=== PATIENT | male | born 1960 | race Caucasian/White ===

== ENCOUNTER 2020-01-12 19:01 | Inpatient (IN) | payer MEDICARE ==
[~2020-01-12] VITALS: Ht 175.3 cm; Wt 88.9 kg
[2020-01-12 19:45] LABS: BASOPHILS # (AUTO) 0.1 (0.0-0.1); BASOPHILS % 0.7 % (0.0-1.0); EOSINOPHILS # (AUTO) 0.2 (0.0-0.4); EOSINOPHILS % 1.7 % (0.0-6.0); HEMATOCRIT 43.6 % (38.2-49.6); HEMOGLOBIN 14.6 g/dL (14.0-18.0); LYMPHOCYTES # (AUTO) 1.1 (1.0-3.2); LYMPHOCYTES % 11.7 % (18.0-39.1); MEAN CORPUSCULAR HEMOGLOBIN 31.1 pg (28-32); MEAN CORPUSCULAR HGB CONC 33.5 g/dL (31-35); MEAN CORPUSCULAR VOLUME 92.8 fL (81-99); MONOCYTES # (AUTO) 0.7 (0.2-0.8); MONOCYTES % 7.3 % (4.4-11.3); NEUTROPHILS # (AUTO) 7.6 (2.1-6.9); NEUTROPHILS % 78.3 % (38.7-80.0); PLATELET COUNT 178 x10e3/uL (140-360); RED CELL DISTRIBUTION WIDTH 13.5 % (11.7-14.4)
[2020-01-12 20:06] LABS: ALBUMIN/GLOBULIN RATIO 1.2 (0.8-2.0); ANION GAP 19.5 mmol/L (8-16); CALCIUM 9.7 mg/dL (8.4-10.2); CREATININE, SERUM 1.37 mg/dL (0.72-1.25); POTASSIUM 4.5 mmol/L (3.5-5.1)
[2020-01-12 20:13] LABS: CREATINE KINASE MB 3.5 ng/mL (0-5.0)
[2020-01-12] MEDS ORDERED: NITROGLYCERIN 2% OINT 1 GM PKT TOP ONE (20:15)
--- NOTE | 2020-01-12 20:20 | NUR ---
PT REFUSED SL NITRO; DR. BOOTHE INFORMED
--- NOTE | 2020-01-12 20:24 | Diagnostic Imaging Report ---
EXAMINATION: CHEST SINGLE (PORTABLE) INDICATION: ^Y ^cp ^[id number] ^1947 COMPARISON: None FINDINGS: TUBES and LINES: Cardiac device at the left superior chest wall with leads overlying the cardiac silhouette. LUNGS: Hazy left perihilar and retrocardiac opacity. Linear opacity in the right lung base, favored to represent scarring or atelectasis. PLEURA: Small left pleural effusion. No pneumothorax. HEART AND MEDIASTINUM: Enlarged cardiac silhouette. Vascular stents visualized. Post surgical changes of the mediastinum with multiple surgical clips. BONES AND SOFT TISSUES: No acute osseous lesion. Visualized median sternotomy wires. Soft tissues are unremarkable. UPPER ABDOMEN: No free air under the diaphragm. IMPRESSION: 1. Hazy left perihilar and retrocardiac opacities, may represent pneumonia or less likely edema. 2. Enlarged cardiac silhouette and small left pleural effusion. Signed by: Dr. Nirav Chung M.D. on 01/12/2020 8:21 PM
[2020-01-12] MEDS ORDERED: NITROGLYCERIN 0.4 MG SUBL ONE (20:25)
--- NOTE | 2020-01-12 20:47 | NUR ---
TROPONIN ELEVATED; DR. BOOTHE INFORMED. PT TO BE TRANSFERED
--- NOTE | 2020-01-12 20:56 | Emergency Department Note ---
History of Present Illnes History of Present Illness Chief Complaint: Chest Pain History of Present Illness This is a 59 year old male arrives to the ED with chest pain for 4 days associated with shortness of breath. Patient states to history of heart attack in the past and this feels the same.. Chief Complaint Comment 59 Y/O MALE PT AAOX3 PRESENTS TO ED WITH MID STERNAL / EPIGASTRIC CHEST PAIN X4 DAYS; RESP RATE AND EFFORT ARE WNL, O2 SAT RA 100%; SKIN WARM, DRY, PALE IN COLOR; 18 GAUGE IV CATH PLACED TO PTS RIGHT FA, BLOOD OBTAINED FOR LAB ANALYSIS; EMS ADMINISTERED NITRO SPRAY X1 EN ROUTE; EKG PERFORMED AND GIVEN TO ER MD FOR REVIEW; ER MD TO TRIAGE FOR INITIAL EVAL Onset (how long ago): day(s) Radiation: Reports non-radiation Severity: mild Onset quality: gradual Duration (how long): day(s) Progression: worsening Chronicity: recurrent Past Medical/Family History Physician Review I have reviewed the patient's past medical and family history. Any updates have been documented here. Past Medical History Recent Fever: No Clinical Suspicion of Infectio: No New/Unexplained Change in Ment: No Past Medical History: Hypertension, Diabetes, CHF, A-Fib, Hyperlipedemia Other Medical History: V-FIB NEUROPATHY CHRONIC PAIN TO RIGHT SHOULDER Past Surgical History: CABG, Pacer/AICD Other Surgery: ANKLE SX Social History Smoking Cessation: Never Smoker Counseling Performed: No Alcohol Use: None Any Illegal Drug Use: No Other Any Pre-Existing Lines (PICC,: No Review of Systems Review of Systems Constitutional: Reports no symptoms EENTM: Reports no symptoms Cardiovascular: Reports as per HPI, Reports chest pain Respiratory: Reports no symptoms Gastrointestinal: Reports no symptoms Genitourinary: Reports no symptoms Musculoskeletal: Reports no symptoms Integumentary: Reports no symptoms Neurological: Reports no symptoms Psychological: Reports no symptoms Endocrine: Reports no symptoms Hematological/Lymphatic: Reports no symptoms Physical Exam Related Data Allergies: Coded Allergies: ibuprofen (Verified Allergy, Intermediate, 01/12/20) Triage Vital Signs Vital Signs Date Time Temp Pulse Resp B/P (MAP) Pulse Ox O2 Delivery O2 Flow Rate FiO2 01/12/20 19:15 97.5 89 17 107/64 100 Room Air Vital signs reviewed: Yes Physical Exam CONSTITUTIONAL Constitutional: Present well-developed, Present well-nourished, Present ill appearing HENT HENT: Present normocephalic, Present atraumatic, Present oropharynx clear/moist, Present nose normal HENT L/R: Present left ext ear normal, Present right ext ear normal EYES Eyes: Reports PERRL, Reports conjunctivae normal NECK Neck: Present ROM normal PULMONARY Pulmonary: Present effort normal, Present breath sounds normal CARDIOVASCULAR Cardiovascular: Present regular rhythm, Present heart sounds normal, Present capillary refill normal, Present normal rate GASTROINTESTINAL Abdominal: Present soft, Present nontender, Present bowel sounds normal GENITOURINARY Genitourinary: Present exam deferred SKIN Skin: Present warm, Present dry MUSCULOSKELETAL Musculoskeletal: Present ROM normal NEUROLOGICAL Neurological: Present alert, Present oriented x 3, Present no gross motor or sensory deficits PSYCHOLOGICAL Psychological: Present mood/affect normal, Present judgement normal Results Laboratory Result Diagram: 01/12/20192901/12/201929 Laboratory Laboratory Tests Test 01/12/20 19:30 White Blood Count 9.74 x10e3/uL (4.8-10.8) Red Blood Count 4.70 x10e6/uL (4.3-5.7) Hemoglobin 14.6 g/dL (14.0-18.0) Hematocrit 43.6 % (38.2-49.6) Mean Corpuscular Volume 92.8 fL (81-99) Mean Corpuscular Hemoglobin 31.1 pg (28-32) Mean Corpuscular Hemoglobin Concent 33.5 g/dL (31-35) Red Cell Distribution Width 13.5 % (11.7-14.4) Platelet Count 178 x10e3/uL (140-360) Neutrophils (%) (Auto) 78.3 % (38.7-80.0) Lymphocytes (%) (Auto) 11.7 % (18.0-39.1) Monocytes (%) (Auto) 7.3 % (4.4-11.3) Eosinophils (%) (Auto) 1.7 % (0.0-6.0) Basophils (%) (Auto) 0.7 % (0.0-1.0) Neutrophils # (Auto) 7.6 (2.1-6.9) Lymphocytes # (Auto) 1.1 (1.0-3.2) Monocytes # (Auto) 0.7 (0.2-0.8) Eosinophils # (Auto) 0.2 (0.0-0.4) Basophils # (Auto) 0.1 (0.0-0.1) Absolute Immature Granulocyte (auto 0.03 x10e3/uL (0-0.1) D-Dimer Quantitative (PE/DVT) 1.39 ug/mLFEU (0.00-0.45) Sodium Level 133 mmol/L (136-145) Potassium Level 4.5 mmol/L (3.5-5.1) Chloride Level 96 mmol/L (98-107) Carbon Dioxide Level 22 mmol/L (22-29) Anion Gap 19.5 mmol/L (8-16) Blood Urea Nitrogen 18 mg/dL (7-26) Creatinine 1.37 mg/dL (0.72-1.25) Estimat Glomerular Filtration Rate 54 ML/MIN (60-) BUN/Creatinine Ratio 13 (6-25) Glucose Level 377 mg/dL (74-118) Calcium Level 9.7 mg/dL (8.4-10.2) Total Bilirubin 2.1 mg/dL (0.2-1.2) Aspartate Amino Transf (AST/SGOT) 17 IU/L (5-34) Alanine Aminotransferase (ALT/SGPT) 14 IU/L (0-55) Alkaline Phosphatase 93 IU/L (40-150) Creatine Kinase 94 IU/L (30-200) Creatine Kinase MB 3.50 ng/mL (0-5.0) Troponin I 0.379 ng/mL (0-0.300) Total Protein 7.4 g/dL (6.5-8.1) Albumin 4.0 g/dL (3.5-5.0) Globulin 3.4 g/dL (2.3-3.5) Albumin/Globulin Ratio 1.2 (0.8-2.0) Lab results reviewed: Yes Procedures 12 Lead ECG Interpretation ECG Interpretation : ECG: ECG 2 [employer]ist: Interpreted by ED physician Prior ECG tracings: reviewed Rhythm: sinus tachycardia QRS axis: normal Conduction: LAFB ST segments normal: Yes T waves normal: Yes Clinical Impression: abnormal ECG Critical Care Time Total Critical Care Time (min): 65 Critical care time exclusive o: separately billable procedures Critcal care necessary due to: cardiac failure Assessment & Plan Medical Decision Making MDM 59-year-old male arrives to the ED with complaints of chest pain, high risk factors. Patient noted to have a weakened troponin was concerns of an STEMI. Dr. Valdez of cardiology contacted, recommended initiation of heparin drip. Patient likely has a component of decompensated heart failure as well. Assessment & Plan Final Impression: (1) NSTEMI (non-ST elevated myocardial infarction) (2) Chest pain Depart Disposition: ADMITTED Last Vital Signs Date Time Temp Pulse Resp B/P (MAP) Pulse Ox O2 Delivery O2 Flow Rate FiO2 01/12/20 20:21 106 18 120/88 93 Room Air 01/12/20 19:15 97.5 Medications in the ED Nitroglycerin 0.4 mg STK-MED ONCE .ROUTE ; Start 01/12/20 at 20:25; Stop 01/12/20 at 20:18; Status DC Nitroglycerin 1 gm ONCE ONCE TOP ; Start 01/12/20 at 20:15; Stop 01/12/20 at 20:28; Status DC PRAVEEN BOOTHE DO Jan 12, 2020 20:56
[2020-01-12] MEDS ORDERED: ONDANSETRON HCL INJ 2MG/ML 2ML 2 MG/ML VIAL IV STA (20:57)
[2020-01-12] MEDS ORDERED: MORPHINE SULFATE INJ 4 MG/ML INJ 1ML IV STA (20:58)
--- NOTE | 2020-01-12 21:07 | NUR ---
medicated with 4 morphine/4 zofran; rates chest pain 7/10. on the phone talking with his sister
[2020-01-12] MEDS ORDERED: ONDANSETRON HCL INJ 2MG/ML 2ML 2 MG/ML VIAL ONE (21:08)
[2020-01-12] MEDS ORDERED: MORPHINE SULFATE INJ 4 MG/ML INJ 1ML ONE (21:08)
[2020-01-12] MEDS ORDERED: HEPARIN SOD (PORCINE) 5,000 UNIT/ML VIAL IV ONE (21:15)
--- NOTE | 2020-01-12 21:24 | NUR ---
placed on 2 l of 02; sats up to 96%
--- OUTSIDE RECORDS SUMMARY | 2020-01-12 21:36 | XMS REPORT | Continuity of Care Document ---
Author Author [facility] t Organization [facility] Address [address] [place] [address] Phone Unavailable Care Team Providers Care Records And Tape Recordings Engineer Name Role Phone Kimberly BOOTHE Attkelly Unavailable Problems This patient has no known problems. Allergies, Adverse Reactions, Alerts This patient has no known allergies or adverse reactions. Medications This patient has no known medications. Procedures This patient has no known procedures. Results Test Description Test Time Test Comments Results Result Comments Source CHEST SINGLE (PORTABLE) 2020-01-12 20:17:00 [facility] 1960 Sex: M [facility] [address] [address] Patient Name: LIDA MICHELLE MR #: [id number] : 1960 Age/Sex: 59/M Req #: [id number] Adm Physician: Ordered by: PRAVEEN BOOTHE DO Report #: [id number] Location: ER Room/Bed: Procedure: [id number] DX/CHEST SINGLE (PORTABLE) Exam Date: 01/12/20 Exam Time: 1947 REPORT STATUS: Signed EXAMINATION: CHEST SINGLE (PORTABLE) INDICATION: Y cp [id number] COMPARISON: None FINDINGS: TUBES and LINES: Cardiac device at the left superior chest wall with leads overlying the cardiac silhouette. LUNGS: Hazy left perihilar and retrocardiac opacity. Linear opacity in the right lung base, favored to represent scarring or atelectasis. PLEURA: Small left pleural effusion. No pneumothorax. HEART AND MEDIASTINUM: Enlarged cardiac silhouette. Vascular stents visualized. Post surgical changes of the mediastinum with multiple surgical clips. BONES AND SOFT TISSUES: No acute osseous lesion. Visualized median sternotomy wires. Soft tissues are unremarkable. UPPER ABDOMEN: No free air under the diaphragm. IMPRESSION: 1. Hazy left perihilar and retrocardiac opacities, may represent pneumonia or less likely edema. 2. Enlarged cardiac silhouette and small left pleural effusion. Signed by: Dr. Naomi Chung M.D. on 01/12/2020 8:21 PM Dictated By: NAOMI CHUNG MD 20 Transcribed By: NONA on 01/12/202020 COPY TO: PRAVEEN BOOTHE DO
[2020-01-12] MEDS ORDERED: HEPARIN 25,000 UNIT DRIP IV ONE (21:44)
[2020-01-12] MEDS: HEPARIN 25,000 UNIT 1,000 UNIT in DEXTROSE 5% 250ML 250 ML IV SCH (21:53)
--- NOTE | 2020-01-12 21:53 | NUR ---
HEPARIN DRIP STARTED AT 950 UNITS/HR
[2020-01-12 22:04] LABS: INR 0.89; PROTHROMBIN TIME 12.5 seconds (11.9-14.5)
[2020-01-12 22:05] LABS: PARTIAL THROMBOPLASTIN TIME 30.3 seconds (23.8-35.5)
[2020-01-12 23:00] VITALS: BP_SYST 124; BP_SYST 126; BP_DIAS 88
--- NOTE | 2020-01-12 23:00 | NUR ---
Patient transferred from ER to ICU bed 194. Patient is here for chest pain, NSTEMI on a heparin drip infusing at 9.5ml/hr. pt is aaox3, still complaining of mid-sternal chest pain, non-radiating. Patient on 2L nc SpO2 94%. Patient is paced rhythm. Vitals stable. ER staffs notified Dr. Valdez for consult.
[2020-01-12] MEDS ORDERED: MORPHINE SULFATE 2 MG/ML SYR 1ML IV STA (23:40)
[2020-01-13] VITALS (7 sets, daily range): BP systolic 92–121; BP diastolic 58–77
[2020-01-13] MEDS ORDERED: ASPIRIN81 MG (01:58)
[2020-01-13] MEDS ORDERED: NITROGLYCERIN0.4 MG SL (01:58)
[2020-01-13] MEDS ORDERED: DIGOXIN125 MCG PO (01:58)
[2020-01-13] MEDS ORDERED: PLAVIX75 MG PO (01:58)
[2020-01-13] MEDS ORDERED: LANTUS 3ML100 UNITS/ (01:58)
[2020-01-13] MEDS ORDERED: FUROSEMIDE40 MG PO (01:58)
[2020-01-13] MEDS ORDERED: LIPITOR20 MG PO (01:58)
[2020-01-13] MEDS ORDERED: MIDODRINE HCL5 MG PO (01:58)
[2020-01-13] MEDS ORDERED: LEXAPRO20 MG PO (01:58)
[2020-01-13] MEDS ORDERED: NOVOLOG100 UNIT/1 SC (01:58)
[2020-01-13] MEDS ORDERED: RANEXA500 MG PO (01:58)
[2020-01-13 04:17] LABS: BASOPHILS # (AUTO) 0.1 (0.0-0.1); BASOPHILS % 0.8 % (0.0-1.0); EOSINOPHILS # (AUTO) 0.2 (0.0-0.4); EOSINOPHILS % 2.2 % (0.0-6.0); HEMATOCRIT 42.5 % (38.2-49.6); HEMOGLOBIN 14.4 g/dL (14.0-18.0); LYMPHOCYTES # (AUTO) 2.9 (1.0-3.2); LYMPHOCYTES % 28.1 % (18.0-39.1); MEAN CORPUSCULAR HEMOGLOBIN 31.3 pg (28-32); MEAN CORPUSCULAR HGB CONC 33.9 g/dL (31-35); MEAN CORPUSCULAR VOLUME 92.4 fL (81-99); MONOCYTES # (AUTO) 0.8 (0.2-0.8); MONOCYTES % 7.9 % (4.4-11.3); NEUTROPHILS # (AUTO) 6.3 (2.1-6.9); NEUTROPHILS % 60.7 % (38.7-80.0); PLATELET COUNT 170 x10e3/uL (140-360); RED CELL DISTRIBUTION WIDTH 13.6 % (11.7-14.4)
[2020-01-13 04:37] LABS: ALBUMIN 3.7 g/dL (3.5-5.0); ALBUMIN/GLOBULIN RATIO 1.2 (0.8-2.0); ANION GAP 14.8 mmol/L (8-16); CHOL/HDL RATIO 5.1 (3.9-4.7); CREATININE, SERUM 1.25 mg/dL (0.72-1.25); POTASSIUM 3.8 mmol/L (3.5-5.1)
[2020-01-13 04:56] LABS: CREATINE KINASE MB 5.1 ng/mL (0-5.0)
[2020-01-13] MEDS ORDERED: MORPHINE SULFATE 2 MG/ML SYR 1ML IV ONE (08:30)
[2020-01-13] MEDS ORDERED: ASPIRIN 325 MG TAB PO SCH (10:15)
[2020-01-13] MEDS: FUROSEMIDE 40 MG TAB PO SCH (10:29)
[2020-01-13] MEDS ORDERED: ASPIRIN 81 MG CHEW TAB PO ONE (10:30)
[2020-01-13] MEDS: ATORVASTATIN 40 MG TAB PO SCH (10:34)
[2020-01-13] MEDS: DIGOXIN 0.125 MG TAB PO SCH (10:35)
[2020-01-13] MEDS: RANOLAZINE 500 MG TABSR PO SCH ×2 (10:43→18:00)
[2020-01-13] MEDS: CARVEDILOL 3.125 MG TAB PO SCH ×2 (10:44→18:00)
--- NOTE | 2020-01-13 14:09 | Consultation ---
DATE OF CONSULTATION: Cardiology Consultation Dictated by REASON FOR CONSULTATION: Chest pain. HISTORY OF PRESENT ILLNESS: Mr. Rios is a 59-year-old male with past medical history of coronary artery disease, status post coronary artery bypass grafting 2010, multiple heart attacks, diabetes mellitus type 2, and also TIA, who reports that he came into the ER after 3 to 4 days history of chest pains that were getting worse on exertion and also some shortness of breath. His symptoms were relieved by nitroglycerin, but he thought that he was taking too many nitros and for that reason he sought urgent care. He continues to have some chest pains, however, none at the moment since receiving morphine. He denies palpitations, dizziness, and does endorse history of syncope upon standing. Denies fever, chills, cough, abdominal pain, or dysuria. He does also report that he has a history of heart failure that he has known about for the last two years, however, he has not been under the care of sill worker due to moving to [place]. He previously was under the care of Dr. Franco with . REVIEW OF SYSTEMS: Negative except as mentioned above. PAST SURGICAL HISTORY: Coronary artery bypass grafting 2010 and also ankle surgery. PAST MEDICAL HISTORY: Diabetes type 2 on insulin, multiple myocardial infarctions, coronary artery disease, TIAs, hypertension, and congestive heart failure. SOCIAL HISTORY: He is disabled, lives alone. Denies smoking or alcohol intake or illicit drug use. PHYSICAL EXAMINATION: VITAL SIGNS: Temperature 98.1, pulse 94, respiratory rate 15, blood pressure 121/70, oxygen saturation 96% on 2 L nasal cannula. GENERAL: Alert and oriented x3, resting comfortably in bed, in no acute distress. NECK: Supple. no JVD noted. No carotid bruits. LUNGS: Clear to auscultation in the upper lobes, lower lobes diminished. No crackles, no wheezing or rhonchi noted. CARDIOVASCULAR: Regular rate and rhythm. Systolic murmur present. S4 noted. ABDOMEN: Soft, nontender. EXTREMITIES: lower extremity no edema. 1+ pedal pulses. CARDIOVASCULAR MEDICATIONS: Heparin IV titrate. LABORATORY DATA: WBC 10.30, hemoglobin 14.4, hematocrit 42.5, platelets 170,000. Sodium 135, potassium 3.8, BUN 18, creatinine 1.25, glucose 250, calcium 9.0, AST 15, ALT 12, alkaline phosphatase 85, creatine kinase 99, CK-MB 5.10, troponin 0.587, triglycerides 160, total cholesterol 154, LDL 92, HDL 30. IMAGING: Chest x-ray with hazy left perihilar and retrocardiac opacity, which may represent pneumonia or edema. IMPRESSION: 1. NSTEMI. 2. Coronary artery disease, status post coronary artery bypass graft and multiple heart attacks with PCI in the past. 3. Diabetes mellitus type 2. 4. History of TIA. 5. Congestive heart failure. RECOMMENDATIONS: Continue with IV heparin, other medications will be added for management of the above. Continue to monitor on telemetry at all time. Continue to monitor cardiac enzymes. Plan for coronary angiogram on Wednesday. We will continue to monitor this patient very closely. Thank you for this consultation and allowing us to participate in this patient's care. MD CAROL Taveras/GALEN /[id number]
[2020-01-13] MEDS ORDERED: NITROGLYCERIN 2% OINT 1 GM PKT TOP ONE (16:45)
[2020-01-13] MEDS: MORPHINE SULFATE INJ 4 MG/ML INJ 1ML IV PRN ×2 (16:57→21:24)
--- NOTE | 2020-01-13 18:16 | NUR ---
Patient complained of chest pain 09/05 in morning, Dr. Valdez called, no response. Dr. Hdz's office called and Rod ROSAS gave orders for morphine one time dose. Cardiology LUNCHROOM SUPERVISOR Nellie rounded and informed of chest pain and patient's history of falls with syncope. Patient complained of chest pain again in shift, Dr. Valdez called and gave orders for nitrobid ointment and morphine prn for pain. Patient refused nitro ointment. Will continue to monitor patient. Addendum: 01/13/20 at 1826 by Oralia Hsu RN Dr. Valdez made aware of troponin trending upwards.
[2020-01-13 18:22] LABS: CREATINE KINASE MB 8.5 ng/mL (0-5.0)
--- NOTE | 2020-01-13 18:40 | NUR ---
Dr. Valdez paged to inform of cardiac enzymes. No answer.
--- NOTE | 2020-01-13 19:09 | NUR ---
Dr. Valdez informed of increasing troponin. No new orders.
[2020-01-13] MEDS ORDERED: ATORVASTATIN 20 MG TAB PO SCH (21:00)
--- NOTE | 2020-01-13 21:00 | NUR ---
Patient transferred to IMCU bed 199. RN report given to Karen
[2020-01-13] MEDS: HEPARIN 25,000 UNIT 1,000 UNIT in DEXTROSE 5% 250ML 250 ML IV SCH (21:15)
[2020-01-13] MEDS ORDERED: DEXTROSE 50% SYRINGE 50 ML IV PRN (21:30)
[2020-01-13] MEDS: PANTOPRAZOLE SOD 40 MG TABEC PO SCH (23:10)
[2020-01-14] VITALS (8 sets, daily range): BP systolic 99–120; BP diastolic 53–69
[2020-01-14] MEDS: MORPHINE SULFATE INJ 4 MG/ML INJ 1ML IV PRN ×3 (01:16→11:16)
[2020-01-14 05:30] LABS: BASOPHILS # (AUTO) 0.1 (0.0-0.1); BASOPHILS % 0.8 % (0.0-1.0); EOSINOPHILS # (AUTO) 0.5 (0.0-0.4); EOSINOPHILS % 4.6 % (0.0-6.0); HEMATOCRIT 39.3 % (38.2-49.6); LYMPHOCYTES # (AUTO) 2.5 (1.0-3.2); LYMPHOCYTES % 22.3 % (18.0-39.1); MEAN CORPUSCULAR HEMOGLOBIN 31.1 pg (28-32); MEAN CORPUSCULAR HGB CONC 33.1 g/dL (31-35); MONOCYTES # (AUTO) 1.1 (0.2-0.8); MONOCYTES % 10.4 % (4.4-11.3); NEUTROPHILS # (AUTO) 6.8 (2.1-6.9); NEUTROPHILS % 61.5 % (38.7-80.0); PLATELET COUNT 156 x10e3/uL (140-360); RED BLOOD COUNT 4.18 x10e6/uL (4.3-5.7); RED CELL DISTRIBUTION WIDTH 13.4 % (11.7-14.4)
[2020-01-14 05:49] LABS: ANION GAP 15.9 mmol/L (8-16); BLOOD UREA NITROGEN 22 mg/dL (7-26); BUN/CREATININE RATIO 18 (6-25); CARBON DIOXIDE 24 mmol/L (22-29); CHLORIDE 99 mmol/L (98-107); CREATININE, SERUM 1.22 mg/dL (0.72-1.25); EST GLOMERULAR FILTRATION RATE > 60 ML/MIN (60-); GLUCOSE 211 mg/dL (74-118); POTASSIUM 3.9 mmol/L (3.5-5.1); SODIUM 135 mmol/L (136-145)
[2020-01-14 06:16] LABS: THYROID STIMULATING HORMONE 0.846 uIU/mL (0.350-4.940)
[2020-01-14] MEDS: PANTOPRAZOLE SOD 40 MG TABEC PO SCH (08:11)
[2020-01-14] MEDS: CARVEDILOL 3.125 MG TAB PO SCH ×2 (08:12→18:13)
[2020-01-14] MEDS: RANOLAZINE 500 MG TABSR PO SCH ×2 (08:12→18:14)
[2020-01-14] MEDS: DIGOXIN 0.125 MG TAB PO SCH (08:12)
[2020-01-14] MEDS: FUROSEMIDE 40 MG TAB PO SCH (08:12)
[2020-01-14] MEDS: INSULIN REGULAR, HUMAN 100 UNIT/1 ML 3ML VIAL SQ SCH ×4 (08:13→21:00)
--- NOTE | 2020-01-14 12:57 | Progress Note ---
DATE: Cardiology Progress Note SUBJECTIVE: The patient continues to have some chest pain at rest. Not in pain at the moment. Endorses some shortness of breath. Denies any PND, orthopnea. OBJECTIVE: VITAL SIGNS: Temperature 98.2, pulse 98, respiratory rate 22, blood pressure 120/61, and oxygen saturation 99% on 2 L nasal cannula. GENERAL: Alert and oriented x3, resting comfortably in bed, in no acute distress. NECK: Supple. No JVD noted. LUNGS: Clear to auscultation in the upper lobes, lower lobes diminished. No crackles. No rhonchi. CARDIOVASCULAR: Regular rate and rhythm. Systolic murmur present. S4 noted. AICD on the left side. ABDOMEN: Soft, nontender. EXTREMITIES: Lower extremity, no edema. 2+ pedal pulses. CARDIOVASCULAR MEDICATIONS: 1. Digoxin 0.125 mg p.o. daily. 2. Lasix 40 mg p.o. daily. 3. Coreg 3.125 mg p.o. b.i.d. 4. mg p.o. b.i.d. 5. Atorvastatin 40 mg p.o. at bedtime. 6. Heparin IV drip. 7. Entresto one tablet p.o. b.i.d. LABORATORY DATA: WBCs 10.98, hemoglobin 13.0, hematocrit 39.3, and platelets 156. Sodium 135, potassium 3.9, BUN 22, and creatinine 1.22. Hemoglobin A1c 12.1. TSH 0.846. IMPRESSION: 1. Ddp-EJ-ufzjvljft myocardial infarction. 2. Coronary artery disease, status post coronary artery bypass grafting and multiple heart attacks with PCIs in the past. 3. Diabetes mellitus type 2, uncontrolled. 4. History of transient ischemic attack. 5. Congestive heart failure. 6. Systolic heart failure with an ejection fraction of 20% per recent echo. RECOMMENDATIONS: Continue the above-listed cardiac medications. Continue IV heparin. Plan for coronary angiogram likely tomorrow. Medications adjusted for management of above. Decompensated heart failure. We will need [facility] AICD interrogated during this hospital stay. Plans have been made. Monitor closely. Dictated by Nellie Kline NP MD MARY ELLEN Taveras/GALEN /[id number]
[2020-01-14] MEDS: NITROGLYCERIN 2% OINT 1 GM PKT TOP SCH (18:14)
[2020-01-14] MEDS: VALSARTAN/SACUBITRIL 24MG/26MG 1 EA TAB PO SCH (18:14)
[2020-01-14] MEDS: ESCITALOPRAM OXALATE 10 MG TAB PO SCH (18:14)
[2020-01-14] MEDS ORDERED: ONDANSETRON HCL INJ 2MG/ML 2ML 2 MG/ML VIAL IV PRN (18:30)
[2020-01-14] MEDS: INSULIN GLARGINE 100 UNITS/ML VIAL SQ SCH (21:00)
[2020-01-14] MEDS: HEPARIN 25,000 UNIT 1,000 UNIT in DEXTROSE 5% 250ML 250 ML IV SCH (21:15)
[2020-01-14] MEDS: ATORVASTATIN 40 MG TAB PO SCH (22:00)
[2020-01-15] VITALS (26 sets, daily range): BP systolic 65–138; BP diastolic 41–85
--- NOTE | 2020-01-15 | NUR ---
Dr. Valdez informed of hypotension, pt c/o dizziness and "not feeling well". Order received for 500cc NS x 1 over 5 hours.
[2020-01-15] MEDS ORDERED: SODIUM CHLORIDE 0.9% 1000ML 1,000 ML ONE ×2 (00:13→11:24)
[2020-01-15] MEDS ORDERED: SODIUM CHLORIDE 0.9% 1000ML 500 ML IV ONE (00:15)
[2020-01-15] MEDS ORDERED: HEPARIN 25,000 UNIT DRIP IV ONE (00:54)
[2020-01-15] MEDS: ONDANSETRON HCL INJ 2MG/ML 2ML 2 MG/ML VIAL IV PRN ×2 (01:00→16:40)
--- NOTE | 2020-01-15 02:20 | NUR ---
Dr. Valdez updated on current VS/hypotension despite IVF. New orders received to transfer to ICU and start levophed gtt. Per MD, OK to infuse through PIV until central line can be placed. Left voicemail for Dr. Way at 0258 regarding new consult and need for central line placement. test car driver updated on need to transfer patient to ICU. Patient updated on POC and verbalizes understanding.
[2020-01-15] MEDS: NOREPINEPHRINE INJ 4MG/4ML 8 MG in DEXTROSE 5% 250ML 250 ML IV SCH (02:45)
[2020-01-15] MEDS ORDERED: NOREPINEPHRINE 8 MG/D5W 250 ML 250 ML ONE (02:47)
--- NOTE | 2020-01-15 03:45 | NUR ---
Spoke with Dr. Way regarding new consult, patient condition and VS. New orders received. Consent obtained for central line placement, patient agreeable with POC. Dr. Way to see patient to place central line.
[2020-01-15] MEDS ORDERED: LIDOCAINE HCL 2% LOCAL 20 ML VIAL ONE ×2 (05:39→11:19)
[2020-01-15] MEDS: NITROGLYCERIN 2% OINT 1 GM PKT TOP SCH ×4 (06:00→15:31)
--- NOTE | 2020-01-15 06:45 | NUR ---
CRITICAL CARE [id number] consult 201950 procedure note brief procedure note. Right IJ was mostly collapsed (suggested very dry) and mostly invisible except within a few frames, 2 attempts here prior to being aborted. Noting difficult w indow the right subclavian was simultaneously prepped, difficult access, brief attempts x 3 as the lidocaine anesthetic supply ran out and patient with trouble lying still. Therefore patient was reprepped with a new kit, and the femoral access was done. 3 lumen CVC inserted into right femoral vein, no difficulties, 1 attempt. EBL:4 cc, complication none CXR pending
[2020-01-15 06:49] LABS: BASOPHILS # (AUTO) 0.1 (0.0-0.1); BASOPHILS % 0.7 % (0.0-1.0); EOSINOPHILS # (AUTO) 0.1 (0.0-0.4); EOSINOPHILS % 1.5 % (0.0-6.0); HEMATOCRIT 37.7 % (38.2-49.6); HEMOGLOBIN 12.7 g/dL (14.0-18.0); LYMPHOCYTES # (AUTO) 1.1 (1.0-3.2); LYMPHOCYTES % 11.8 % (18.0-39.1); MEAN CORPUSCULAR HEMOGLOBIN 31.4 pg (28-32); MEAN CORPUSCULAR HGB CONC 33.7 g/dL (31-35); MEAN CORPUSCULAR VOLUME 93.1 fL (81-99); MONOCYTES # (AUTO) 0.5 (0.2-0.8); MONOCYTES % 5.8 % (4.4-11.3); NEUTROPHILS # (AUTO) 7.4 (2.1-6.9); NEUTROPHILS % 79.9 % (38.7-80.0); PLATELET COUNT 165 x10e3/uL (140-360); RED BLOOD COUNT 4.05 x10e6/uL (4.3-5.7); RED CELL DISTRIBUTION WIDTH 13.5 % (11.7-14.4)
--- NOTE | 2020-01-15 06:50 | NUR ---
Report given to oncjessica AM RN. RN updated on events overnight, pt VS, and MD orders entered that are due. Updated sister Gi on patient condition and transfer to ICU.
[2020-01-15] MEDS ORDERED: VANCOMYCIN 1GM/NS 250 ML 250 ML IV ONE (07:15)
[2020-01-15 07:21] LABS: ANION GAP 21.2 mmol/L (8-16); CALCIUM 8.6 mg/dL (8.4-10.2); CREATININE, SERUM 1.65 mg/dL (0.72-1.25); POTASSIUM 4.2 mmol/L (3.5-5.1)
--- NOTE | 2020-01-15 07:24 | Diagnostic Imaging Report ---
EXAMINATION: CHEST SINGLE (PORTABLE) INDICATION: ^right central line attempt, chf ^[id number] ^[id number] COMPARISON: 01/12/2020 FINDINGS: AP view TUBES and LINES: Stable left chest wall cardiac device. Bilateral supraclavicular lines could be external to patient or represent parts of attempted central line placement. LUNGS: Lungs are well inflated. Pulmonary vascular congestion and mild sternal edema. PLEURA: No pneumothorax. Trace bilateral pleural effusions. HEART AND MEDIASTINUM: The cardiomediastinal silhouette is enlarged. Median sternotomy wires and mediastinal surgical clips. BONES AND SOFT TISSUES: No acute osseous lesion. Soft tissues are unremarkable. UPPER ABDOMEN: No free air under the diaphragm. IMPRESSION: Enlarged cardiomediastinal silhouette, central vascular congestion, and mild sternal edema. Trace bilateral pleural effusions. Bilateral supraclavicular lines could be external to patient or represent parts of attempted central line placement. The tips project over the supraclavicular regions. Recommend clinical correlation. Signed by: Dr. Omid Mattson MD on 01/15/2020 7:21 AM
[2020-01-15] MEDS: INSULIN REGULAR, HUMAN 100 UNIT/1 ML 3ML VIAL SQ SCH ×5 (07:30→21:11)
--- NOTE | 2020-01-15 08:44 | Consultation ---
DATE OF CONSULTATION: 01/15/2020 Critical Care Medicine Consult REASON FOR REFERRAL: Shock. HISTORY OF PRESENT ILLNESS: Mr. iRos is a pleasant 59-year-old gentleman with shock. The patient presented to [facility] on January 12, 2020. At that time, the patient had chest pain for 4 days. The patient with clinical concern of myocardial infarction. The troponins went up to 0.991 in the up trending significance. CK-MB was 8.5. The patient was getting medical management for stabilization. Heparin drip ongoing. The patient's blood pressure, however, started fall, 65/41 blood pressure measured. He was transferred to ICU level. The patient's chest x-ray with appearance of left-sided atelectasis versus pneumonitis upon admit. The patient has not had any fevers during this hospitalization and he denies referred symptoms that are highly suggestive of infection. Of note, when patient has central line placement done, his right upper torso veins suggested that he is dry. PAST MEDICAL HISTORY: 1. Hypertension. 2. Diabetes. 3. CHF. 4. LVEF less than 20%. 5. Atrial fibrillation. 6. Hyperlipidemia. 7. History of ventricular fibrillation status post AICD. 8. Neuropathy. 9. Chronic pain to right shoulder. PAST SURGICAL HISTORY: 1. CABG. 2. AICD. AICD he says was last placed in 2010, although it was originally placed in 2003. 3. Ankle surgery. MEDICATIONS: Medication list reviewed per the chart record. ALLERGIES: IBUPROFEN. SOCIAL HISTORY: The patient denies smoking, denies drinking and denies drugs. FAMILY HISTORY: Noncontributory to this. REVIEW OF SYSTEMS: GENERAL: No weight changes. OPHTHALMOLOGIC: No double vision. ENT: No mouth ulcers. PULMONARY: No asthma. IMMUNOLOGIC: There are mild allergies. CARDIAC: No active chest pain now. GI: There was nausea two days ago with emesis. : No blood in urine. NEUROLOGIC: No seizures. DERMATOLOGIC: No rashes. PHYSICAL EXAMINATION: VITAL SIGNS: Afebrile, vital signs noted reviewed per the chart record. GENERAL: No acute distress, although he does look tired. He says he is very dehydrated, is not feeling too well. HEENT: Normocephalic and atraumatic. NECK: Supple. Throat midline. LUNGS: Bilateral air entry, clear. CARDIOVASCULAR: S1, S2. No murmurs, rubs, or gallops. ABDOMEN: Soft, nontender. EXTREMITIES: No clubbing. No cyanosis. There is no edema. INTEGUMENT: No rash, no purpura. LABORATORY DATA: BUN 22, creatinine 1.2. White count 11, hematocrit 39, platelets 156. IMPRESSION AND PLAN: 1. Admitted with Txc-UH-zvymlkpli myocardial infarction. 2. Shock, under investigation. Possible hypovolemic, possible septic. Rule out cardiogenic. 3. Coronary artery disease status post CABG. 4. Systolic cardiomyopathy, chronic. Possibly compensated, LVEF less than 20%. 5. Atrial fibrillation. 6. Hypertension. 7. Diabetes. 8. Hyperlipidemia. 9. History of cardiomyopathy status post AICD. 10. Coronary artery disease status post CABG. 11. dehydration. 12. Abnormal chest radiography, left atelectasis versus pneumonia. At this time, we will give him a little bit of fluid back. Continue Levophed and wean. Central line placement performed. The patient will have to transfer to ICU. Continue glycemic control as well as maintenance of urine output. Cardiac medications and cardiac catheterization as he stabilized. First dose of antibiotics will be given, although he is not clinically septic. Blood cultures to be ordered. Thank you very much, Dr. Hdz, Dr. Valdez for this consult. Please call for questions. Greater than 30 minutes in direct care and coordination on this date, not including procedure time. MD HOLA Casey/LUCIUSL /[id number]
--- NOTE | 2020-01-15 08:49 | Operative Report ---
DATE OF PROCEDURE: 01/15/2020 SURGEON: Surjit Way MD PROCEDURE: Central venous catheter placement, ultrasound guidance. INDICATION: Shock. ANESTHESIA: Local lidocaine 1%, 8 mL total given over two different areas of body . FINDINGS: Informed consent obtained. Sterile prep and drape. The patient was placed in Trendelenburg position. Ultrasound noted that the right IJ was almost nonexistent, rarely visible or extremely hyper collapsible. For this reason, the prep and drape included both the right IJ and the right subclavian access areas. The patient prepared. With ultrasound guidance, assisted cannulation towards the right internal jugular vessel via inferior approach. We were not able to get dependable backwards blood flow. Therefore, after three sticks, the approach was aborted. We went for subclavian approach right side and once again with a couple of blind sticks and ultrasound guidance, the patient with difficulty getting blood flow. Limitation partially incurred due to running out of lidocaine anesthesia from the kit. Therefore, we flipped to the right femoral area where the ultrasound suggested reasonable size right femoral vein. Under ultrasound guidance under one attempt only, the right femoral vein was easily cannulated and three lumen central venous catheter line was inserted under reverse Seldinger technique. Thereafter, it was sutured in place at 20 cm. COMPLICATIONS: None. ESTIMATED BLOOD LOSS: 4 mL. MD HOLA Casey/LUCIUSL /[id number] PHILIPPE
[2020-01-15] MEDS: RANOLAZINE 500 MG TABSR PO SCH ×2 (09:00→15:30)
[2020-01-15] MEDS: VALSARTAN/SACUBITRIL 24MG/26MG 1 EA TAB PO SCH ×2 (09:00→15:30)
[2020-01-15] MEDS: CARVEDILOL 3.125 MG TAB PO SCH ×2 (09:00→15:30)
[2020-01-15] MEDS: CEFTRIAXONE SOD 1 GM/NS 50 ML 50 ML IV SCH (09:32)
[2020-01-15] MEDS: DOXYCYCLINE 100MG/NS 100ML 100 ML IV SCH ×2 (09:33→20:50)
[2020-01-15] MEDS: DIGOXIN 0.125 MG TAB PO SCH (09:33)
[2020-01-15] MEDS: ESCITALOPRAM OXALATE 10 MG TAB PO SCH (09:33)
[2020-01-15] MEDS: PANTOPRAZOLE SOD 40 MG TABEC PO SCH (09:33)
--- NOTE | 2020-01-15 11:00 | Progress Note ---
DATE: Cardiology Progress Note SUBJECTIVE: The patient is feeling better. Denies any chest discomfort or shortness of breath. OBJECTIVE: VITAL SIGNS: Temperature is 98.2, heart rate is 84, respirations are 16, blood pressure is 131/74, and oxygen saturation 99% on room air. GENERAL: Well appearing, no apparent distress. CARDIOVASCULAR: Regular rate and rhythm. Systolic murmur at the right sternal border. LUNGS: Diminished breath sounds at bases. ABDOMEN: Soft, nontender, nondistended. EXTREMITIES: Edema. CARDIOVASCULAR MEDICATIONS: Reviewed. TELEMETRY: Telemetry monitoring was personally reviewed by myself and shows normal sinus rhythm with ventricular paced complex. IMPRESSION: 1. Acute on chronic systolic congestive heart failure. 2. Non-ST elevation myocardial infarction. 3. Coronary artery disease, status post percutaneous coronary intervention and coronary bypass graft surgery. 4. History of myocardial infarction. 5. Diabetes mellitus. 6. History of transient ischemic attack. RECOMMENDATIONS: The patient will require coronary and graft angiography with possible coronary intervention given elevated troponins and symptoms. He has a defibrillator in place. Continue current cardiovascular medications for his heart failure and coronary artery disease. Further recommendations to follow angiogram. Risks, benefits, and alternatives were discussed with the patient. He agrees to proceed. DO JOAQUIN Espinoza/MODL /[id number]
--- NOTE | 2020-01-15 11:00 | NUR ---
Patient to general production laborer via bed.
[2020-01-15] MEDS ORDERED: IOPAMIDOL 370 MG/ML 200 ML INFUS..BTL INJ ONE (11:19)
[2020-01-15] MEDS ORDERED: FENTANYL CITRATE/PF 100MCG/2 ML INJ ONE (11:23)
[2020-01-15] MEDS ORDERED: MIDAZOLAM HCL 2 MG/2 ML VIAL ONE (11:23)
[2020-01-15] MEDS ORDERED: ADENOSINE 6MG/2ML 1 ML ONE ×2 (11:51→11:55)
[2020-01-15] MEDS ORDERED: SODIUM CHLORIDE 0.9% 50ML 50 ML ONE (11:51)
[2020-01-15] MEDS ORDERED: SODIUM CHLORIDE 0.9% 250ML 250 ML ONE (11:55)
[2020-01-15] MEDS ORDERED: ASPIRIN 325 MG TAB ONE (12:33)
[2020-01-15] MEDS ORDERED: TICAGRELOR 90 MG TABLET ONE (12:33)
--- NOTE | 2020-01-15 13:10 | NUR ---
Patient to Room 192 via bed. VSS, left femoral site with no drainage, no sign of hematoma.
--- NOTE | 2020-01-15 13:47 | Operative Report ---
DATE OF PROCEDURE: 01/14/2020 SURGEON: Yao Hannon DO PROCEDURES PERFORMED: 1. Conscious sedation, 1 hour. 2. Selective coronary angiography x2. 3. Selective graft angiography x3. 4. Percutaneous transluminal angioplasty and drug-eluting stent placement to the saphenous vein graft. PRE-PROCEDURE DIAGNOSIS: Non ST-elevation myocardial arching. POST PROCEDURE DIAGNOSIS: Non ST-elevation myocardial arching. ESTIMATED BLOOD LOSS: Less than 20 mL. SPECIMENS REMOVED: None. PROCEDURE IN DETAIL: After informed consent was obtained, the patient is brought to the cardiac catheterization laboratory in a fasting and nonsedated state. Bilateral groins were prepped and draped in usual sterile fashion. A 2% lidocaine was instilled over the left anterior groin for local anesthesia. The patient received fentanyl and midazolam administered by the bottle label inspector nurse and his neurologic and physiologic status was monitored by myself and bottle label inspector staff for 1 hour. Using micropuncture needle, the left common femoral artery was accessed via the modified Seldinger technique and a 6-Turkmen sheath was placed. Next, diagnostic coronary geography x2 and selective graft angiography x3 were performed. This revealed a significant stenotic occlusion in the saphenous vein graft anastomosed to the first obtuse marginal vessel. Decision was made for percutaneous coronary intervention. The patient received systemic heparin for therapeutic anticoagulation. Next, the saphenous vein graft was cannulated with an LCB guide catheter. The lesion was crossed with a Runthrough wire. I attempted to cross a 6 mm spider filter wire distally. It was deployed. However, due to severe tortuosity of the saphenous vein graft, I was unable to use embolic protection due to inadequate distance from the lesion to the filter basket. Next, the filter basket was removed in the usual manner. I re-crossed the lesion with a Runthrough wire. Pre-dilated with a 3 x 15 balloon. Next, I stented the lesion with a 3.5 x 28 Synergy drug-eluting stent. Next, this was post dilated with a 4 mm noncompliant balloon. Final angiography confirmed excellent results with brisk antegrade flow distally. There was no evidence of no reflow in the robinson vessels. The patient tolerated the procedure well. No immediate complications. Hemostasis was achieved via ProGlide Perclose device. He was transferred back to his room in stable condition. PROCEDURE FINDINGS: 1. The distal left main is occluded. The bifurcation of the ostial LAD and ostial circumflex also are occluded. 2. Left anterior descending coronary has stents present from the proximal all the way down to the distal portion and is 100% occluded. 3. Left circumflex is occluded proximally. 4. The right coronary artery has moderate to severe diffuse disease proximally inside a previously placed stent and is 100% occluded at the mid portion. 5. Saphenous vein graft, likely anastomosed to the right coronary artery is occluded. 6. The saphenous vein graft to the obtuse marginal has a proximal 40% stenosis. There is a distal 90% stenosis. This provides antegrade flow into the first obtuse marginal vessel in addition to the AV groove artery and the 2nd obtuse marginal vessel. 7. There is a patent left internal mammary graft anastomosed to a small diagonal branch which also feeds collaterals to the posterior lateral branch of the right coronary artery. IMPRESSIONS: Severe coronary artery disease with stenosis of the saphenous vein graft to the obtuse marginal, status post percutaneous coronary intervention. RECOMMENDATIONS: Continue dual antiplatelet therapy and aggressive medical therapy for his congestive heart failure and coronary artery disease. Yao Hannon DO BM/MODL /[id number]
[2020-01-15] MEDS: MORPHINE SULFATE INJ 4 MG/ML INJ 1ML IV PRN ×2 (16:40→20:51)
[2020-01-15] MEDS ORDERED: HALOPERIDOL LACTATE 5 MG/ML VIAL IV ONE (19:00)
--- NOTE | 2020-01-15 20:14 | Progress Note ---
DATE: CONSULTING PHYSICIANS: 1. Dr. Surjit Way with Pulmonology/Critical Care Medicine. 2. Dr. Laron Valdez with Cardiology. SUBJECTIVE: The patient is lying supine on his left side. The patient has minimal complaints. Has some upper abdominal pain of 4 to 5 on a scale of 0 to 10, which he states is" more anxiety" than anything else. Per RN, someone called his 17-year-old daughter and let her know that he had a heart attack. The patient was very upset that that was done. Last bowel movement was yesterday. OBJECTIVE: VITAL SIGNS: Temperature 98.2, heart rate 83, blood pressure 92/45, respirations 21, oxygen saturation 95% on room air. GENERAL: No acute distress, supine on his left side. LUNGS: Clear to auscultation. Respiratory pattern even and unlabored. No supplemental oxygen. HEENT: EOMI. Oropharynx clear. NECK: Supple. No lymphadenopathy, thyromegaly, or JVD. CARDIOVASCULAR: Regular rate and rhythm. No murmur. Levophed infusing at 2 mcg/minute into a right femoral central venous catheter. ABDOMEN: Bowel sounds positive. Soft, nontender, obese. EXTREMITIES: No pitting edema. No clubbing, cyanosis, or signs of DVT. NEUROLOGICAL: GCS 15. Nonfocal. LABORATORY DATA: WBCs 9.19, hemoglobin 12.7, hematocrit 37.7, platelets 165, PTT 81.9. Sodium 136, potassium 4.2, chloride 97, CO2 of 22, anion gap 21.2, BUN 34, creatinine 1.65, estimated GFR 43, glucose 198, calcium 8.6. Blood cultures x2 collected today with results pending. Chest x-ray today showed enlarged cardiomediastinal silhouette, central vascular congestion and mild sternal edema. Trace bilateral pleural effusions. Bilateral supraclavicular lines could be external to the patient or represent parts of attempted central line placement at the tip projects over the supraclavicular regions. ASSESSMENT AND PLAN: 1. NSTEMI. The patient underwent a left heart catheterization today. Per report, severe coronary artery disease with stenosis of the saphenous vein graft to the obtuse marginal, status post PCI. The patient has been on IV heparin, nitroglycerin paste, beta lopez, aspirin. The patient has a defibrillator in place. 2. Coronary artery disease status post coronary artery bypass graft, aspirin, Lipitor, Coreg, Ranexa. 3. Acute on chronic systolic congestive heart failure, compensated on Lasix. The patient is on 2 mcg/minute of Levophed. Monitor blood pressure. 4. Paroxysmal atrial fibrillation, currently sinus rhythm. Continue digoxin and Coreg. 5. Uncontrolled type 2 diabetes mellitus. Hemoglobin A1c 12.1%. Serum glucose 198. Fingerstick blood glucose levels yesterday 232, 210, 178. Lantus 20 units was started and the patient remains on low-dose sliding scale insulin. Monitor fingerstick blood glucose levels. We will change diet to a renal ADA diet. BUN 34, creatinine 1.65, estimated GFR 43. 6. History of transient Ischemic Attack. 7. Anxiety. We will give one time dose of clonazepam and continue Lexapro. 8. Prophylaxis. Protonix and heparin. Inpatient, billing code [id number], ICU 192, time spent 35 minutes. Dictated by Irving Smith NP MD SACHA RossP/MODL /[id number]
[2020-01-15] MEDS: ATORVASTATIN 40 MG TAB PO SCH (20:50)
[2020-01-15] MEDS: INSULIN GLARGINE 100 UNITS/ML VIAL SQ SCH (21:00)
[2020-01-15] MEDS ORDERED: CLONAZEPAM 1 MG TAB PO ONE (21:00)
[2020-01-15] MEDS: HEPARIN 25,000 UNIT 1,000 UNIT in DEXTROSE 5% 250ML 250 ML IV SCH (21:15)
[2020-01-16] VITALS (15 sets, daily range): BP systolic 84–135; BP diastolic 46–86
[2020-01-16] MEDS: NOREPINEPHRINE INJ 4MG/4ML 8 MG in DEXTROSE 5% 250ML 250 ML IV SCH (03:00)
[2020-01-16 04:11] LABS: BASOPHILS # (AUTO) 0.1 (0.0-0.1); BASOPHILS % 0.7 % (0.0-1.0); EOSINOPHILS # (AUTO) 0.7 (0.0-0.4); EOSINOPHILS % 5.4 % (0.0-6.0); HEMATOCRIT 37.5 % (38.2-49.6); HEMOGLOBIN 12.6 g/dL (14.0-18.0); LYMPHOCYTES # (AUTO) 1.6 (1.0-3.2); LYMPHOCYTES % 12.8 % (18.0-39.1); MEAN CORPUSCULAR HEMOGLOBIN 31.2 pg (28-32); MEAN CORPUSCULAR HGB CONC 33.6 g/dL (31-35); MEAN CORPUSCULAR VOLUME 92.8 fL (81-99); MONOCYTES # (AUTO) 1.4 (0.2-0.8); MONOCYTES % 11.4 % (4.4-11.3); NEUTROPHILS # (AUTO) 8.4 (2.1-6.9); NEUTROPHILS % 69.4 % (38.7-80.0); PLATELET COUNT 192 x10e3/uL (140-360); RED BLOOD COUNT 4.04 x10e6/uL (4.3-5.7); RED CELL DISTRIBUTION WIDTH 13.6 % (11.7-14.4)
[2020-01-16 04:28] LABS: ANION GAP 14.5 mmol/L (8-16); CALCIUM 8.8 mg/dL (8.4-10.2); CREATININE, SERUM 1.34 mg/dL (0.72-1.25); MAGNESIUM 2.3 MG/DL (1.3-2.1); PHOSPHORUS 3.1 MG/DL (2.3-4.7); POTASSIUM 3.5 mmol/L (3.5-5.1)
[2020-01-16] MEDS: NITROGLYCERIN 2% OINT 1 GM PKT TOP SCH ×4 (06:00→17:24)
[2020-01-16] MEDS: INSULIN REGULAR, HUMAN 100 UNIT/1 ML 3ML VIAL SQ SCH ×4 (07:30→21:00)
[2020-01-16] MEDS: CEFTRIAXONE SOD 1 GM/NS 50 ML 50 ML IV SCH (08:08)
[2020-01-16] MEDS: PANTOPRAZOLE SOD 40 MG TABEC PO SCH (08:08)
[2020-01-16] MEDS: CARVEDILOL 3.125 MG TAB PO SCH ×2 (08:09→17:00)
[2020-01-16] MEDS: DOXYCYCLINE 100MG/NS 100ML 100 ML IV SCH ×2 (08:09→20:30)
[2020-01-16] MEDS: VALSARTAN/SACUBITRIL 24MG/26MG 1 EA TAB PO SCH ×2 (08:09→17:00)
[2020-01-16] MEDS: DIGOXIN 0.125 MG TAB PO SCH (08:10)
[2020-01-16] MEDS: RANOLAZINE 500 MG TABSR PO SCH ×2 (08:10→17:00)
[2020-01-16] MEDS: ESCITALOPRAM OXALATE 10 MG TAB PO SCH (08:10)
--- NOTE | 2020-01-16 08:26 | Diagnostic Imaging Report ---
TECHNIQUE: Frontal view of the chest. INDICATION: ^chf ^[id number] ^0530 COMPARISON: Prior day. IMPRESSION: Lines and hardware: Stable. Heart and mediastinum: Stable. Lungs and pleura: Worsening, now pulmonary alveolar edema. No focal airspace consolidation. Stable trace pleural effusions. No pneumothorax. Soft tissues and bones: No acute abnormality. Signed by: Braulio Knight MD on 01/16/2020 8:22 AM
--- NOTE | 2020-01-16 11:47 | Progress Note ---
DATE: SUBJECTIVE: The patient is still on 1 mcg of Levophed. He is urinating well. He has no chest pain or dyspnea. PHYSICAL EXAMINATION: VITAL SIGNS: The blood pressure is now 100/58, saturation is 100%, and the pulse is 91. HEENT: Shows no facial swelling or erythema. LYMPHATIC: Shows no submandibular, cervical, or supraclavicular adenopathy. CARDIAC: Reveals regular rate and rhythm with normal S1 and S2. LUNGS: Auscultation of lungs reveals decreased breath sounds at the bases. There is no wheezing. ABDOMEN: Soft and nontender. There is no rebound or guarding. EXTREMITIES: Show no leg edema or calf tenderness. There is no cyanosis or clubbing. LABORATORY DATA: White blood cell count is 12.1, hemoglobin 12.6, and the platelet count is 192. The BUN to creatinine ratio is 27 to 1.34 and the potassium is 135. The other electrolytes are within normal limits. IMPRESSION: 1. Yzppk-zu-powrgeh systolic congestive heart failure. 2. Systolic cardiomyopathy with decreased ejection fraction. 3. Paroxysmal atrial fibrillation. 4. Diabetes. PLAN: 1. Case discussed with Dr. Hannon of Cardiology and we will begin midodrine. We will also titrate the Levophed to a MAP of 55 provided the patient is alert and is urinating well. 2. Continue current cardiac regimen. 3. Continue to monitor and control blood sugars. Laureano Nolan MD [facility]/MODL /[id number]
--- NOTE | 2020-01-16 11:57 | Progress Note ---
DATE: Cardiology Progress Note SUBJECTIVE: The patient denies any chest pain or shortness of breath. OBJECTIVE: VITAL SIGNS: Temperature is 98, heart rate 91, respirations are 17, blood pressure is 84/46, and oxygen saturation 100% on room air. GENERAL: Well appearing, in no apparent distress. CARDIOVASCULAR: Regular rate and rhythm. LUNGS: Clear to auscultation. ABDOMEN: Soft, nontender, and nondistended. EXTREMITIES: Trace edema. CARDIOVASCULAR MEDICATIONS: Reviewed. LABORATORY DATA: Reviewed. IMPRESSION: 1. Pufgi-iv-bpbjkfq systolic congestive heart failure. 2. ST-elevation myocardial infarction. 3. Coronary artery disease, status post percutaneous coronary intervention of the saphenous vein graft to the obtuse marginal vessel. 4. Diabetes mellitus. 5. History of transient ischemic attack. 6. History of coronary artery bypass graft surgery. RECOMMENDATIONS: The patient underwent successful revascularization of the saphenous vein graft to the obtuse marginal vessel. Continue dual antiplatelet therapy. Titrate heart failure medications as tolerated. Wean vasopressors as tolerated. Start midodrine for better blood pressure control. We will continue to follow. DO JOAQUIN Espinoza/GALEN /[id number]
[2020-01-16] MEDS: MIDODRINE HCL 5 MG TABLET PO SCH ×2 (12:29→17:32)
[2020-01-16] MEDS: TICAGRELOR 90 MG TABLET PO SCH ×2 (12:29→17:00)
[2020-01-16] MEDS ORDERED: ONDANSETRON HCL INJ 2MG/ML 2ML 2 MG/ML VIAL IV PRN (12:45)
--- NOTE | 2020-01-16 15:51 | Diagnostic Imaging Report ---
EXAM: CT Chest without intravenous contrast HISTORY: ^edema vs pna ^[id number] ^1400 COMPARISON: Chest radiograph same date TECHNIQUE: CT of the chest without intravenous contrast. Coronal and sagittal reformations were obtained. DOSE REDUCTION: The examination was performed according to the departmental dose-optimization program, which includes automated exposure control, adjustment of the mA and/or kV according to patient size and/or use of iterative reconstruction technique. FINDINGS: THE ABSENCE OF INTRAVENOUS CONTRAST DECREASES THE SENSITIVITY FOR DETECTION OF FOCAL LESIONS AND VASCULAR PATHOLOGY. LINES and TUBES: Left chest cardiac device. LUNGS, AIRWAYS AND PLEURA: Groundglass opacity throughout the lungs, with interstitial thickening. Moderate right and small left pleural effusion HEART AND MEDIASTINUM: The visualized thyroid gland is normal. Upper paratracheal and preaortic lymphadenopathy measuring up to 2.1 cm. Coronary arterial calcifications. SOFT TISSUES AND BONES: Unremarkable. UPPER ABDOMEN: Renal parenchymal calcification. IMPRESSION: The absence of intravenous contrast decreases the sensitivity for detection of focal lesions and vascular pathology. 1. Pulmonary alveolar edema with moderate right and small left pleural effusions. No focal consolidation. Consider superimposed pneumonitis in the proper clinical setting. 2. Nonspecific mediastinal lymphadenopathy, may be infectious, inflammatory or neoplastic. If clinically indicated, recommend follow-up CT chest with contrast in one month. Signed by: Braulio Knight MD on 01/16/2020 3:48 PM
[2020-01-16] MEDS: LORAZEPAM 0.5 MG TAB PO PRN ×2 (17:32→21:45)
[2020-01-16] MEDS: ATORVASTATIN 40 MG TAB PO SCH (21:00)
[2020-01-16] MEDS: INSULIN GLARGINE 100 UNITS/ML VIAL SQ SCH (21:00)
--- NOTE | 2020-01-16 23:39 | NUR ---
pt resting comfortably in bed no signs of distress no complaints at this time
[2020-01-17] VITALS (16 sets, daily range): BP systolic 42–128; BP diastolic 27–64
[2020-01-17] MEDS: LORAZEPAM 0.5 MG TAB PO PRN ×2 (01:51→10:03)
[2020-01-17] MEDS: FUROSEMIDE INJ 100 MG in SODIUM CHLORIDE 0.9% 100 ML 90 ML IV SCH (04:00)
[2020-01-17] MEDS: NITROGLYCERIN 2% OINT 1 GM PKT TOP SCH ×4 (05:33→16:20)
[2020-01-17] MEDS: CEFTRIAXONE SOD 1 GM/NS 50 ML 50 ML IV SCH (05:33)
[2020-01-17 07:08] LABS: BASOPHILS # (AUTO) 0.1 (0.0-0.1); BASOPHILS % 0.8 % (0.0-1.0); EOSINOPHILS # (AUTO) 0.4 (0.0-0.4); EOSINOPHILS % 5.2 % (0.0-6.0); HEMATOCRIT 36.6 % (38.2-49.6); HEMOGLOBIN 12.4 g/dL (14.0-18.0); LYMPHOCYTES # (AUTO) 1.2 (1.0-3.2); LYMPHOCYTES % 15.9 % (18.0-39.1); MEAN CORPUSCULAR HEMOGLOBIN 31.9 pg (28-32); MEAN CORPUSCULAR HGB CONC 33.9 g/dL (31-35); MEAN CORPUSCULAR VOLUME 94.1 fL (81-99); MONOCYTES # (AUTO) 0.8 (0.2-0.8); MONOCYTES % 10.1 % (4.4-11.3); NEUTROPHILS # (AUTO) 5.3 (2.1-6.9); NEUTROPHILS % 67.7 % (38.7-80.0); PLATELET COUNT 151 x10e3/uL (140-360); RED BLOOD COUNT 3.89 x10e6/uL (4.3-5.7); RED CELL DISTRIBUTION WIDTH 13.5 % (11.7-14.4)
[2020-01-17 07:18] LABS: PARTIAL THROMBOPLASTIN TIME 27.6 seconds (23.8-35.5); PROTHROMBIN TIME 13.7 seconds (11.9-14.5)
[2020-01-17 07:20] LABS: ANION GAP 14.8 mmol/L (8-16); BLOOD UREA NITROGEN 17 mg/dL (7-26); BUN/CREATININE RATIO 17 (6-25); CALCIUM 8.7 mg/dL (8.4-10.2); CARBON DIOXIDE 22 mmol/L (22-29); CHLORIDE 104 mmol/L (98-107); EST GLOMERULAR FILTRATION RATE > 60 ML/MIN (60-); GLUCOSE 191 mg/dL (74-118); POTASSIUM 3.8 mmol/L (3.5-5.1); SODIUM 137 mmol/L (136-145)
[2020-01-17] MEDS: MIDODRINE HCL 5 MG TABLET PO SCH ×3 (08:41→16:16)
[2020-01-17] MEDS: PANTOPRAZOLE SOD 40 MG TABEC PO SCH (08:41)
[2020-01-17] MEDS: DIGOXIN 0.125 MG TAB PO SCH (08:42)
[2020-01-17] MEDS: ASPIRIN 81 MG CHEW TAB PO SCH (08:42)
[2020-01-17] MEDS: VALSARTAN/SACUBITRIL 24MG/26MG 1 EA TAB PO SCH ×2 (08:42→16:19)
[2020-01-17] MEDS: DOXYCYCLINE 100MG/NS 100ML 100 ML IV SCH ×3 (08:42→23:45)
[2020-01-17] MEDS: CARVEDILOL 3.125 MG TAB PO SCH ×2 (08:42→16:19)
[2020-01-17] MEDS: ESCITALOPRAM OXALATE 10 MG TAB PO SCH (08:42)
[2020-01-17] MEDS: TICAGRELOR 90 MG TABLET PO SCH ×2 (08:42→16:16)
[2020-01-17] MEDS: RANOLAZINE 500 MG TABSR PO SCH ×2 (08:43→16:21)
[2020-01-17] MEDS: INSULIN REGULAR, HUMAN 100 UNIT/1 ML 3ML VIAL SQ SCH ×4 (08:45→20:39)
[2020-01-17] MEDS: ACETAMINOPHEN 325 MG TAB PO PRN (10:03)
[2020-01-17] MEDS ORDERED: BRILINTA90 MG PO (10:28)
[2020-01-17] MEDS ORDERED: FUROSEMIDE40 MG PO (10:28)
[2020-01-17] MEDS ORDERED: LANTUS 3ML100 UNITS/ SQ (10:28)
[2020-01-17] MEDS ORDERED: Valsartan/Sacubitril 24MG/26MG PO (10:28)
[2020-01-17] MEDS ORDERED: MIDODRINE HCL5 MG PO (10:28)
[2020-01-17] MEDS ORDERED: Atorvastatin PO (10:28)
[2020-01-17] MEDS ORDERED: NOVOLOG100 UNIT/1 SC (10:28)
[2020-01-17] MEDS ORDERED: ASPIRIN CHEW81 MG PO (10:28)
[2020-01-17] MEDS ORDERED: COREG3.125 MG PO (10:28)
[2020-01-17] MEDS ORDERED: DIGOXIN125 MCG PO (10:28)
[2020-01-17] MEDS ORDERED: LEXAPRO20 MG PO (10:28)
[2020-01-17] MEDS ORDERED: RANEXA500 MG PO (10:28)
--- NOTE | 2020-01-17 14:30 | NUR ---
Home O2 eval was done. Pt was 92% on RA, 95% on exertion on RA. Does not qualify for home oxygen. IMM letter delivered and explained to pt. He verbalized understanding. Copy to pt. Signed copy placed in chart.
--- NOTE | 2020-01-17 14:53 | Progress Note ---
DATE: SUBJECTIVE: The patient is afebrile. He went for CT scan yesterday that showed pulmonary emboli. PHYSICAL EXAMINATION: VITAL SIGNS: The blood pressure is 113/57, saturation is 96% on room air, and the pulse is 82. HEENT: Shows no facial swelling or erythema. LYMPHATIC: Shows no submandibular, cervical, or supraclavicular adenopathy. CARDIAC: Reveals regular rate and rhythm with normal S1 and S2. LUNGS: Auscultation of lungs reveal decreased breath sounds at the bases. There is no wheezing. ABDOMEN: Soft, nontender. There is no rebound or guarding. EXTREMITIES: Shows no leg edema or calf tenderness. There is no cyanosis or clubbing. SKIN: Shows no rashes. LABORATORY DATA: White blood cell count is 7.8, hemoglobin is 12.4, and the platelet count is 151. The BUN to creatinine ratio is normal. The other electrolytes are within normal limits. IMPRESSION: 1. Gtlhi-cl-htlvgtx systolic congestive heart failure. 2. Coronary artery disease. 3. Myocardial infarction. 4. Diabetes mellitus. 5. Paroxysmal atrial fibrillation. PLAN: 1. Continue current cardiac regimen. 2. Wean oxygen as tolerated. 3. Out of bed as tolerated. 4. Discussed disposition with Dr. Hdz and Cardiology. Laureano Nolan MD [facility]/LUCIUSL /[id number]
--- NOTE | 2020-01-17 15:10 | Diagnostic Imaging Report ---
CLINICAL HISTORY: Pleural effusion, ^[id number] ^5507 COMPARISON: None CT MRI TECHNOLOGIST: Braulio Knight DO, JD ANESTHESIA: Local lidocaine. MEDICATIONS: Please see nursing note. DEVICE: 5 Gibraltarian one-step catheter. ESTIMATED BLOOD LOSS: < 5cc SAMPLE: As below. PROCEDURE: The risks, benefits, and alternatives to the procedure were discussed with the patient/healthcare proxy. All questions were answered and written informed consent was obtained. A universal timeout was performed prior to starting the procedure. All elements of maximal sterile barrier technique were utilized for this procedure, including utilization of sterile scrub solution for skin prep, a large sterile sheet to cover the areas of the patient that were not prepped, and hand hygiene, mask, head covering, and sterile gown for performing radiologist and scrub technologist. A limited ultrasound examination was performed of the chest, showing a right pleural effusion. After infiltrating the skin with 1 % lidocaine, a 5 Gibraltarian x 10 cm One-step catheter was advanced into the pleural space. Approximately 0.75 L of red yellow-colored fluid was removed. A sample was sent for analysis. The catheter was removed without immediate complication. Sterile dressing was applied. IMPRESSION: Successful ultrasound-guided diagnostic and therapeutic right thoracentesis. Signed by: Braulio Knight MD on 01/17/2020 3:07 PM
--- NOTE | 2020-01-17 15:12 | Diagnostic Imaging Report ---
TECHNIQUE: Frontal view of the chest. INDICATION: ^THORACENTESIS COMPARISON: Prior day. IMPRESSION: Lines and hardware: Stable. Heart and mediastinum: Stable. Lungs and pleura: Improved, now pulmonary vascular congestion. No focal airspace consolidation. No right pleural effusion. Trace left pleural effusion. No pneumothorax. Soft tissues and bones: No acute abnormality. Signed by: Braulio Knight MD on 01/17/2020 3:09 PM
[2020-01-17 16:29] LABS: BODY FLUID APPEARANCE TURBID; BODY FLUID COLOR RED; BODY FLUID TYPE PLEURAL; RBC,BODY FLUID 18744 cells/uL
[2020-01-17 16:30] LABS: WBC,BODY FLUID 990 cells/uL
[2020-01-17 16:56] LABS: LYMPHOCYTES,BODY FLUID 56 %; MONO/MACROPHG,BODY FLUID 33 %; NEUTROPHILS,BODY FLUID 11 %
--- NOTE | 2020-01-17 19:35 | Progress Note ---
DATE: Cardiology Progress Note SUBJECTIVE: The patient reports feeling "tangled up." Denies any chest pain or shortness of breath. OBJECTIVE: VITAL SIGNS: Temperature is 97.6, heart rate 89, respirations 16, blood pressure is 105/64, and oxygen saturation 95% on room air. GENERAL: Well appearing, no apparent distress. CARDIOVASCULAR: Regular rate and rhythm. LUNGS: Clear to auscultation. ABDOMEN: Soft, nontender, and nondistended. EXTREMITIES: No clubbing, cyanosis, or edema. VASCULAR: 2+ pulses. SKIN: Warm, dry, and intact. LABORATORY DATA: Reviewed. Hemoglobin is 12.4. Creatinine is 1. CARDIOVASCULAR MEDICATIONS: Reviewed. IMPRESSION: 1. Zfh-SO-vpzgzsdip myocardial infarction. 2. Kjcwy-xj-dovyein systolic congestive heart failure. 3. Coronary artery disease. 4. History of coronary bypass graft surgery. 5. Status post percutaneous coronary intervention of the saphenous vein graft to the obtuse marginal vessel. 6. Diabetes mellitus. 7. Transient ischemic attack. RECOMMENDATIONS: Continue current cardiovascular medications for his heart failure and coronary artery disease. Wean midodrine. Continue all of the current medications. Physical therapy and supportive care per primary team. Disposition per primary team. DO JOAQUIN Espinoza/MODL /[id number]
--- NOTE | 2020-01-17 19:50 | NUR ---
NURSE AIDE CAME TO NURSE AND STATED PT BP VERY LOW WAS 63/41 FIRST TAKEN THEN SECOND TIME TAKEN IT WAS 48/38. NURSE WENT TO PT ROOM TO CHECK PT. PT ALERT AND ORIENTED AA0X3 WITH NO C/O OF DIZZINESS BUT STATES RIGHT SIDE HURTS FROM PROCEDURE EARLIER IN THE DAY. NURSE CHECKED BP NOW AT 46/27 HR 76 WITH PACER. CALLED CARDIOLOGY AND LEFT MESSAGE TO CALL BACK, PT HAS CHF SO NURSE DID NOT START BOLUS WITHOUT DR CLEARANCE, CALLED ATTENDING'S COSTUMED CHARACTER FORESTRY LABORER CYNTHIA FAROOQ AND ORDERED TO TRANSFER TO ICU TO START PRESSORS BUT GO AHEAD AND CALL RAPID RESPONSE ON PT TO HAVE ER DR CHECK HIM OUT. NURSE ED CHARGE NURSE TO CALL RAPID ON PT AND TOOK COMPUTER TO ROOM AND WAITED FOR RESPONSE TEAM.
[2020-01-17 20:19] LABS: BASOPHILS # (AUTO) 0.1 (0.0-0.1); BASOPHILS % 0.9 % (0.0-1.0); EOSINOPHILS # (AUTO) 0.5 (0.0-0.4); EOSINOPHILS % 3.4 % (0.0-6.0); HEMATOCRIT 31.1 % (38.2-49.6); HEMOGLOBIN 10.3 g/dL (14.0-18.0); LYMPHOCYTES # (AUTO) 0.9 (1.0-3.2); LYMPHOCYTES % 7.1 % (18.0-39.1); MEAN CORPUSCULAR HEMOGLOBIN 30.9 pg (28-32); MEAN CORPUSCULAR HGB CONC 33.1 g/dL (31-35); MEAN CORPUSCULAR VOLUME 93.4 fL (81-99); MONOCYTES # (AUTO) 1.2 (0.2-0.8); MONOCYTES % 8.7 % (4.4-11.3); NEUTROPHILS # (AUTO) 10.6 (2.1-6.9); NEUTROPHILS % 79.4 % (38.7-80.0); PLATELET COUNT 191 x10e3/uL (140-360); RED BLOOD COUNT 3.33 x10e6/uL (4.3-5.7); RED CELL DISTRIBUTION WIDTH 13.6 % (11.7-14.4)
--- NOTE | 2020-01-17 20:23 | NUR ---
ER DR AND DR MICHELLE AT BEDSIDE WITH PT. EKG DONE, CXRAY, LABS, NS 500ML BOLUS, AND PT IS BEING TRANSFERRED TO ICU WITH ORDERS FOR PRESSORS AND CENTRAL LINE PLACEMENT. REPORT CALLED TO ENDER CHARGE NURSE COLETTE AT BEDSIDE WITH ER NURSE LINN, PRIMARY NURSE, ADMITTING CLERK AND DRS. LAB REPORTS TO BE CALLED TO ATTENDING AND CARDIO. PT IS STABLE AT THIS TIME WITH NS BOLUS GOING AND WAS TAKEN TO ICU WITH CHARGE NURSE AND PRIMARY NURSE.
[2020-01-17] MEDS: ATORVASTATIN 40 MG TAB PO SCH (20:34)
[2020-01-17] MEDS: INSULIN GLARGINE 100 UNITS/ML VIAL SQ SCH (20:40)
--- NOTE | 2020-01-17 20:48 | Diagnostic Imaging Report ---
EXAMINATION: CHEST SINGLE (PORTABLE) INDICATION: Low blood pressure. COMPARISON: Same day chest radiograph. FINDINGS: TUBES and LINES: AICD is intact. LUNGS: Normal lung volumes. There is diffuse hazy opacification of the lungs and interstitial prominence. PLEURA: No pleural effusion or pneumothorax. HEART AND MEDIASTINUM: The cardiomediastinal silhouette is enlarged. There are atherosclerotic calcifications within the aorta. BONES AND SOFT TISSUES: No acute osseous lesion. Stable changes of CABG. Soft tissues are unremarkable. UPPER ABDOMEN: No free air under the diaphragm. IMPRESSION: Cardiomegaly with interstitial pulmonary edema, progressed since most recent prior examination. Superimposed infection cannot be excluded. Signed by: Octavia Gomes MD on 01/17/2020 8:45 PM
[2020-01-17 21:10] LABS: ANION GAP 15.2 mmol/L (8-16); CALCIUM 8.2 mg/dL (8.4-10.2); CREATININE, SERUM 1.33 mg/dL (0.72-1.25); POTASSIUM 4.2 mmol/L (3.5-5.1)
[2020-01-17 21:18] LABS: CREATINE KINASE MB 3.7 ng/mL (0-5.0)
--- NOTE | 2020-01-17 21:27 | NUR ---
Dr. Hdz notified of critical troponin per MD request. stated to relay lab value to insurance consultant.
--- NOTE | 2020-01-17 21:37 | NUR ---
Dr. Roberts notified of troponin level. Orders received to repeat in 6 hours. MD aware of patient complaint of CP. Orders received relayed to primary RN.
[2020-01-17] MEDS ORDERED: LIDOCAINE HCL 2% LOCAL 20 ML VIAL ONE (21:40)
[2020-01-17] MEDS: DOBUtamine HCL 500MG/D5W 250ML 250 ML IV SCH (22:00)
[2020-01-17] MEDS: MORPHINE SULFATE INJ 4 MG/ML INJ 1ML IV PRN (22:00)
[2020-01-17] MEDS ORDERED: DOBUtamine HCL 500MG/D5W 250ML 250 ML IV ONE (22:02)
--- NOTE | 2020-01-17 22:26 | Operative Report ---
DATE OF PROCEDURE: SURGEON: Laureano Nolan MD PROCEDURE: Central line placement under ultrasound guidance. PREOPERATIVE DIAGNOSES: Acute renal insufficiency, hypotension, and cardiomyopathy. POSTOPERATIVE DIAGNOSES: Acute renal insufficiency, hypotension, and cardiomyopathy. CONSENT: Consent was obtained from the sister and the patient. MEDICATIONS: A 1% lidocaine for local anesthesia. DESCRIPTION OF PROCEDURE: The patient was placed in supine position. The right groin was prepped sterilely. A full length sterile drape, sterile gown, and sterile gloves were used. The femoral vein was located with an ultrasound machine. The skin was anesthetized with 1% lidocaine. The femoral vein could not be cannulated on two attempts. The patient was re-draped in the left groin, was prepped sterilely with chlorhexidine. Sterile drapes, sterile gown, sterile gloves, and mask were used. Ultrasound machine was used to locate the femoral vein. A 1% lidocaine was then used to anesthetize the area above the femoral vein. The femoral vein was cannulated under direct visualization with a 16-gauge needle. A wire was passed through the needle. A dilator was used to open the skin and a triple-lumen catheter was placed over the wire by the Seldinger technique. All the ports flushed. COMPLICATIONS: None. ESTIMATED BLOOD LOSS: None. Laureano Nolan MD [facility]/MODL /[id number]
[2020-01-17] MEDS ORDERED: NOREPINEPHRINE 8 MG/D5W 250 ML 250 ML ONE (22:56)
[2020-01-17] MEDS: NOREPINEPHRINE INJ 4MG/4ML 8 MG in DEXTROSE 5% 250ML 250 ML IV PRN (23:00)
[2020-01-18] VITALS (25 sets, daily range): BP systolic 65–132; BP diastolic 39–91
[2020-01-18] MEDS: ACETAMINOPHEN 325 MG TAB PO PRN (02:46)
[2020-01-18] MEDS: NOREPINEPHRINE INJ 4MG/4ML 8 MG in DEXTROSE 5% 250ML 250 ML IV PRN ×2 (03:09→07:40)
[2020-01-18] MEDS: DOBUtamine HCL 500MG/D5W 250ML 250 ML IV SCH (03:10)
[2020-01-18] MEDS ORDERED: NOREPINEPHRINE 8 MG/D5W 250 ML 250 ML ONE (03:10)
[2020-01-18 03:39] LABS: BASOPHILS # (AUTO) 0.1 (0.0-0.1); BASOPHILS % 0.4 % (0.0-1.0); EOSINOPHILS % 0.2 % (0.0-6.0); HEMATOCRIT 32.2 % (38.2-49.6); HEMOGLOBIN 10.8 g/dL (14.0-18.0); LYMPHOCYTES # (AUTO) 0.5 (1.0-3.2); LYMPHOCYTES % 3.4 % (18.0-39.1); MEAN CORPUSCULAR HGB CONC 33.5 g/dL (31-35); MEAN CORPUSCULAR VOLUME 92.5 fL (81-99); MONOCYTES % 12.5 % (4.4-11.3); NEUTROPHILS # (AUTO) 13.3 (2.1-6.9); NEUTROPHILS % 83.1 % (38.7-80.0); PLATELET COUNT 218 x10e3/uL (140-360); RED BLOOD COUNT 3.48 x10e6/uL (4.3-5.7); RED CELL DISTRIBUTION WIDTH 13.3 % (11.7-14.4)
[2020-01-18] MEDS ORDERED: FUROSEMIDE INJ 10 MG/ML 10 ML VIAL ONE (04:01)
[2020-01-18] MEDS ORDERED: SODIUM CHLORIDE 0.9% 100 ML ONE (04:02)
[2020-01-18 04:14] LABS: ALBUMIN 3.3 g/dL (3.5-5.0); ALBUMIN/GLOBULIN RATIO 1.1 (0.8-2.0); ANION GAP 19.4 mmol/L (8-16); CALCIUM 8.3 mg/dL (8.4-10.2); CREATININE, SERUM 1.76 mg/dL (0.72-1.25); POTASSIUM 4.4 mmol/L (3.5-5.1)
[2020-01-18] MEDS: FUROSEMIDE INJ 100 MG in SODIUM CHLORIDE 0.9% 100 ML 90 ML IV SCH ×2 (04:19→21:37)
[2020-01-18] MEDS: INSULIN REGULAR, HUMAN 100 UNIT/1 ML 3ML VIAL SQ SCH ×4 (04:30→21:36)
[2020-01-18] MEDS ORDERED: AMIODARONE 900MG 500 ML IV ONE (05:57)
[2020-01-18] MEDS ORDERED: AMIODARONE HCL 100 ML IV ONE (05:57)
[2020-01-18] MEDS: CEFTRIAXONE SOD 1 GM/NS 50 ML 50 ML IV SCH (06:05)
[2020-01-18] MEDS ORDERED: AMIODARONE HCL 150 MG/100 ML BAG IV ONE (06:15)
[2020-01-18] MEDS ORDERED: VASOPRESSIN 60 UNIT in DEXTROSE 5% 50ML 57 ML IV PRN (06:15)
[2020-01-18] MEDS ORDERED: AMIODARONE HCL 900 MG in DEXTROSE 5% 500ML 500 ML IV ONE (06:30)
[2020-01-18] MEDS ORDERED: AMIODARONE HCL 150 MG in DEXTROSE 5% 100ML 100 ML IV SCH (06:30)
[2020-01-18] MEDS: ASPIRIN 81 MG CHEW TAB PO SCH (08:09)
[2020-01-18] MEDS: TICAGRELOR 90 MG TABLET PO SCH ×2 (08:09→16:32)
[2020-01-18] MEDS: PANTOPRAZOLE SOD 40 MG TABEC PO SCH (08:09)
[2020-01-18] MEDS: MIDODRINE HCL 5 MG TABLET PO SCH ×3 (08:09→16:32)
[2020-01-18] MEDS: DOXYCYCLINE 100MG/NS 100ML 100 ML IV SCH ×2 (08:09→20:11)
[2020-01-18] MEDS: DIGOXIN 0.125 MG TAB PO SCH (08:10)
[2020-01-18] MEDS: RANOLAZINE 500 MG TABSR PO SCH ×2 (08:10→16:32)
[2020-01-18] MEDS: ESCITALOPRAM OXALATE 10 MG TAB PO SCH (08:10)
[2020-01-18] MEDS: LORAZEPAM 0.5 MG TAB PO PRN ×3 (08:11→23:40)
[2020-01-18] MEDS ORDERED: B&O 60MG R/S 60 MG SUPP PR PRN (08:45)
--- NOTE | 2020-01-18 09:14 | Progress Note ---
DATE: Pulmonary Critical Care Progress Note SUBJECTIVE: The patient is now in the intensive care unit. He required transfer last night because of persistent hypotension. He was started on dopamine and then switched to Levophed because of tachycardia. He is now on Levophed at 30 mcg. He is also on dobutamine at 5 mcg as well as a Lasix drip. PHYSICAL EXAMINATION: VITAL SIGNS: Blood pressure is now 94/68 and the heart rate is 115. He is 100% saturated on 2 L. HEENT: Shows no facial swelling or erythema. LYMPHATIC: Shows no submandibular, cervical, or supraclavicular adenopathy. CARDIAC: Reveals regular rate and rhythm with normal S1, S2. LUNGS: Auscultation of lungs reveal decreased breath sounds at the bases. There is no wheezing. ABDOMEN: Soft, nontender. There is no rebound or guarding. EXTREMITIES: Shows 1 to 2+ leg edema. There is left femoral line in place. The patient has a Elizabeth catheter. LABORATORY DATA: Pleural fluid shows 990 white blood cells, but 18,744 red blood cells. The glucose is 179 and total protein is 1.9. The LDH is 173. The white blood cell count is 16.05 and hemoglobin is 10.8 and the platelet count is 218. The BUN to creatinine ratio is 28 to 1.76. The carbon dioxide is 18. The sodium is 132. The glucose is 417. The troponin I is 1.36 and the BNP is 1211. RADIOGRAPHIC DATA: Chest x-ray shows cardiomegaly and interstitial edema. IMPRESSION: 1. Cardiogenic shock requiring pressure support. 2. Severe systolic cardiomyopathy. 3. Acute on chronic systolic congestive heart failure. 4. Transudative pleural effusion secondary to heart failure. 5. Diabetes. 6. Paroxysmal atrial fibrillation. PLAN: 1. Case discussed with the patient, nursing and Dr. Naidu of Cardiology. We will titrate the MAP to 55 provided the patient is urinating well and mentating well. 2. Wean Levophed as tolerated. Consider switching to vasopressin. 3. Continue dobutamine and Lasix. 4. Continue amiodarone. 5. B and O suppositories for bladder spasms. 6. Continue antibiotics until culture results are back. 7. Cardiology to investigate the potential benefits for transfer to [facility] or [facility]. Greater than 35 minutes in direct critical care time. MD SAPPHIRE Coy/GALEN /[id number]
--- NOTE | 2020-01-18 09:26 | NUR ---
Holding Skilled PT services since patient is moved to higher level of care ( medical floor to ICU). Please write new PT orders when appropriate. Thank you Addendum: 01/18/20 at 0926 by Michael de luna PT Amended: Links added.
[2020-01-18] MEDS: MORPHINE SULFATE INJ 4 MG/ML INJ 1ML IV PRN ×2 (09:57→14:35)
[2020-01-18] MEDS ORDERED: FENTANYL CITRATE/PF 100MCG/2 ML INJ ONE (11:22)
[2020-01-18] MEDS ORDERED: IOPAMIDOL 370 MG/ML 200 ML INFUS..BTL INJ ONE (11:22)
[2020-01-18] MEDS ORDERED: MIDAZOLAM HCL 2 MG/2 ML VIAL ONE (11:22)
[2020-01-18] MEDS ORDERED: SOD CHLORIDE ONE (11:22)
[2020-01-18] MEDS ORDERED: LIDOCAINE HCL 2% LOCAL 20 ML VIAL ONE (11:22)
[2020-01-18] MEDS ORDERED: HEPARIN SOD ONE (11:22)
[2020-01-18] MEDS ORDERED: SODIUM CHLORIDE 0.9% 1000ML 1,000 ML ONE (11:23)
--- NOTE | 2020-01-18 14:51 | NUR ---
Nutrition Intervention Note RD Recommendation(s) for Physician: -Recommend cardiac/ADA diet and fluid restriction per MD -Recommend Ensure Compact BID for added nutrition -The patient meets criteria for MODERATE protein-calorie malnutrition. Plan of Care: RD following, monitoring for tolerance and adequacy, oral supplement recommendation Nutrition reason for involvement: Length of stay RD Assessment (01/18/20) Pt is a 59 year old male admitted with NSTEMI. Pt was transferred to the ICU last night due to persistent hypotension. Pt was not in the room at time of visit. Pt has been consuming <50% of meals on average during admission (5 days). There are no reports of unintentional weight loss upon admission and pts weight has been stable. Recommend Ensure Compact BID for added nutrition. Will continue to monitor Principal Problems/Diagnoses: NSTEMI PMH: Diabetes type 2 on insulin, multiple myocardial infarctions, coronary artery disease, TIAs, hypertension, and congestive heart failure. GI: soft abdomen, no BM recorded Skin: intact Labs: (01/17) Na 132, K 4.4, BUN 28, Cr 1.76, Glu 417, Ca 8.3 Meds: morphine, protonix, norepinephrine, amiodarone, antibiotic, furosemide, dobutamine, dopamine, insulin, vasopressin, zofran Ht: 69 in Wt: 196.06 lbs BMI: 29.0 kg/m2 IBW: 160 lbs Malnutrition Evaluation (01/18/20) The patient meets criteria for MODERATE protein-calorie malnutrition. Energy intake: <50% of estimated energy requirements for 5 days Weight loss: No weight loss reported upon admission Fat loss: unable to evaluate Muscle loss: unable to evaluate, Supporting Evidence: Fluid accumulation: 1 to 2+ leg edema per MD note (01/17) Functional Status: not assessed Nutrition Prescription (Diet Order): cardiac/1.2 L fluid restriction Estimated Nutritional Needs: 8597-9136 calories/day (18-20 kcal/kg CBW) 89-134 g protein/day (1.0-1.5 pro/kg CBW) Diet Adequacy: Not meeting calorie needs, Not meeting protein needs Tolerance: unable to assess at this time Diet Education Needs Assessment: Diet education not indicated at this time Nutrition Care Level: low Nutrition Diagnosis: Moderate protein calorie malnutrition related to acute illness as evidenced by pt meeting <50% of estimated energy needs for > 5 days and fluid accumulation. Goal: Patient will meet 75-100% of estimated needs by follow up Progress: N/A Interventions: -carbohydrate and fat/cholesterol/sodium, fluid - modified diet, Commercial beverage, Recommended Modifications Monitoring/Evaluation: -Total energy intake, Total protein intake, Modified diet, Liquid supplement, Weight change Signed: Dulce Tijerina RD, LD
--- NOTE | 2020-01-18 15:57 | Consultation ---
DATE OF CONSULTATION: Renal Consultation REASON FOR CONSULTATION: Acute kidney injury, rising creatinine. HISTORY OF PRESENT ILLNESS: Mr. Nikhil Rios is a 59-year-old male, who is here in the ICU. He was transferred here last night. The patient just recently underwent placement of an intra-aortic balloon pump. I am being asked to see the patient because of a rising serum creatinine. His serum creatinine today is 1.76. The patient actually when he presented, looks like on the , his serum creatinine was 1.37 and at one point it was coming down. It went down to 1.0, but now it is starting to rise again. Before it went down to 1.0, it actually gregory and then came down. The patient has extensive cardiac history. He had a coronary artery bypass graft surgery done in 2010. He has had multiple heart attacks. He has coronary stents placed also. PAST MEDICAL HISTORY: Coronary artery disease, cardiomyopathy, multiple MIs, diabetes mellitus, hypertension, and history of congestive heart failure. PAST SURGICAL HISTORY: 1. Coronary artery bypass graft surgery in 2010. 2. Ankle surgery. SOCIAL HISTORY: No smoking. No EtOH. No HIV risk factors. MEDICATIONS: He is getting some morphine, belladonna alkaloid, lorazepam, Lexapro, digoxin, aspirin, doxycycline, and Protonix. He is on a Lasix drip right now at 5 mg an hour. He is on Levophed and dobutamine. REVIEW OF SYSTEMS: As per HPI. PHYSICAL EXAMINATION: VITAL SIGNS: Blood pressure 112/58, pulse between 80 and 100. GENERAL: The patient appears to be in no acute distress. He does awaken. HEENT: No increased JVD. CARDIOVASCULAR: Regular rate and rhythm. LUNGS: Decreased breath sounds at the bases bilaterally. ABDOMEN: Positive bowel sounds. EXTREMITIES: No edema, cyanosis, or clubbing. LABORATORY RESULTS: Sodium 132, potassium 4.4, chloride 99, bicarbonate 18, BUN and creatinine 28 and 1.7 respectively, and glucose 417. White count is 16, hemoglobin and hematocrit are 11 and 32 respectively, platelet count 218. IMPRESSION/PLAN: 1. Acute kidney injury. 2. Cardiomyopathy. 3. Congestive heart failure. 4. Ischemic heart disease. 5. Coronary artery disease. 6. Hypotension. PLAN: The patient is having acute kidney injury at this time and the etiology is multifactorial, but also mostly includes decreased effective renal blood flow secondary to cardiomyopathy. The patient, however, is on a Lasix drip right now and he is producing good urine output. He is still, however, in pulmonary edema according to chest x-ray. We will continue the Lasix drip at this time. If it looks like the BUN and creatinine rising precipitously, we might have to stop the Lasix for a while, but at this time we will discontinue it. NSAIDs, SALAZAR-2 inhibitors, and IV contrast should be avoided. There is no need to do any ultrafiltration or dialysis at this time. I will follow the patient with you. Thank you, Dr. Hdz and Dr. Nolan, for allowing me to participate in the care of this patient with you. Ather MD GAYATRI Aparicio/GALEN /[id number]
--- NOTE | 2020-01-18 16:17 | Progress Note ---
DATE: Cardiology Progress Note SUBJECTIVE: The patient was hypotensive overnight, requiring dobutamine, dopamine, and norepinephrine infusions. He became tachycardic and required amiodarone infusion. This morning, he is fairly lethargic and mildly confused. PHYSICAL EXAMINATION: VITAL SIGNS: Temperature is 98.2, heart rate is 103, respirations are 10, blood pressure is 110/73, and oxygen saturation is 96% on 3 L nasal cannula. GENERAL: He is a chronically ill-appearing man, in no apparent distress. CARDIOVASCULAR: Tachycardic. Regular rhythm. LUNGS: Diminished breath sounds. ABDOMEN: Soft, obese, and nontender. EXTREMITIES: Cool to touch. Edema present. NEUROLOGIC: No focal deficits noted. CARDIOVASCULAR MEDICATIONS: Reviewed. LABORATORY DATA: Reviewed. Creatinine is 1.76. IMPRESSION: 1. Cardiogenic shock. 2. Zsukk-hu-iwfcjjy systolic congestive heart failure. 3. Vjy-OM-uzrlnomra myocardial infarction. 4. Coronary artery disease, status post revascularization of the saphenous vein graft to the obtuse marginal vessel. 5. Diabetes mellitus. 6. Hyperlipidemia. 7. Obesity. RECOMMENDATIONS: The patient appears to be acutely decompensating in regard to his heart failure status. Continue dobutamine for inotropic support. Continue Lasix drip for diuresis. Monitor urinary output and daily creatinine levels. The patient was taken to the cardiac cath tech urgently and underwent placement of an intra-aortic balloon pump and is currently on one-to-one counterpulsation. Continue to wean norepinephrine as tolerated dictated by mean arterial pressures. Hold antihypertensives and heart failure medications other than his diuretics. Continue dual antiplatelet therapy and statins. The patient will need to be transferred to [facility] in the [facility] for high level of care for advanced heart failure therapy. Yao Hannon DO BM/MODL /[id number]
[2020-01-18] MEDS: ATORVASTATIN 40 MG TAB PO SCH (21:00)
[2020-01-18] MEDS: INSULIN GLARGINE 100 UNITS/ML VIAL SQ SCH (21:37)
[2020-01-19] VITALS (23 sets, daily range): BP systolic 68–160; BP diastolic 36–91
[2020-01-19] MEDS: NOREPINEPHRINE INJ 4MG/4ML 8 MG in DEXTROSE 5% 250ML 250 ML IV PRN ×2
[2020-01-19] MEDS: MORPHINE SULFATE INJ 4 MG/ML INJ 1ML IV PRN ×3 (00:51→12:22)
[2020-01-19] MEDS: CEFTRIAXONE SOD 1 GM/NS 50 ML 50 ML IV SCH (05:19)
[2020-01-19 05:25] LABS: BASOPHILS # (AUTO) 0.1 (0.0-0.1); BASOPHILS % 0.4 % (0.0-1.0); EOSINOPHILS # (AUTO) 0.1 (0.0-0.4); EOSINOPHILS % 0.8 % (0.0-6.0); HEMATOCRIT 29.3 % (38.2-49.6); HEMOGLOBIN 9.8 g/dL (14.0-18.0); LYMPHOCYTES # (AUTO) 1.2 (1.0-3.2); LYMPHOCYTES % 6.6 % (18.0-39.1); MEAN CORPUSCULAR HEMOGLOBIN 30.8 pg (28-32); MEAN CORPUSCULAR HGB CONC 33.4 g/dL (31-35); MEAN CORPUSCULAR VOLUME 92.1 fL (81-99); MONOCYTES # (AUTO) 1.9 (0.2-0.8); MONOCYTES % 10.5 % (4.4-11.3); NEUTROPHILS # (AUTO) 14.6 (2.1-6.9); NEUTROPHILS % 81.1 % (38.7-80.0); PLATELET COUNT 172 x10e3/uL (140-360); RED BLOOD COUNT 3.18 x10e6/uL (4.3-5.7); RED CELL DISTRIBUTION WIDTH 13.6 % (11.7-14.4)
[2020-01-19 05:49] LABS: ALBUMIN 3.2 g/dL (3.5-5.0); ANION GAP 18.5 mmol/L (8-16); CALCIUM 8.4 mg/dL (8.4-10.2); CREATININE, SERUM 1.53 mg/dL (0.72-1.25); POTASSIUM 3.5 mmol/L (3.5-5.1)
[2020-01-19] MEDS: PANTOPRAZOLE SOD 40 MG TABEC PO SCH (07:30)
[2020-01-19] MEDS: LORAZEPAM 0.5 MG TAB PO PRN (07:32)
[2020-01-19] MEDS ORDERED: NITROGLYCERIN 0.4 MG SUBL SL ONE (07:45)
[2020-01-19] MEDS: MIDODRINE HCL 5 MG TABLET PO SCH ×3 (08:00→16:00)
[2020-01-19] MEDS: DOXYCYCLINE 100MG/NS 100ML 100 ML IV SCH (08:30)
--- NOTE | 2020-01-19 08:38 | Diagnostic Imaging Report ---
X-ray chest frontal view History: Congestive heart failure Comparison: 01/17/2020 Findings: Lines and tubes: Not applicable Central airways: Unremarkable Cardiac silhouette: Cardiomegaly. Status post median sternotomy and CABG. Status post left subclavian route AICD. Mediastinal silhouettes: No change Pleura: Bilateral pleural effusions layering, right more than left. No pneumothorax. Diaphragms: Unremarkable Lungs: Bilateral central interstitial and airspace pattern shows slight improvement. Skeletal structures: Unremarkable Extrathoracic soft tissues: Unremarkable Impression: Possible slight improvement of the pulmonary infiltrates. Signed by: Ronald Recinos MD on 01/19/2020 8:35 AM
[2020-01-19] MEDS: RANOLAZINE 500 MG TABSR PO SCH ×2 (09:00→17:00)
[2020-01-19] MEDS: ASPIRIN 81 MG CHEW TAB PO SCH (09:00)
[2020-01-19] MEDS: DIGOXIN 0.125 MG TAB PO SCH (09:00)
[2020-01-19] MEDS: TICAGRELOR 90 MG TABLET PO SCH ×2 (09:00→19:04)
[2020-01-19] MEDS: ESCITALOPRAM OXALATE 10 MG TAB PO SCH (09:00)
[2020-01-19] MEDS: LORAZEPAM INJ 2 MG/ML VIAL IV PRN ×2 (09:10→15:29)
--- NOTE | 2020-01-19 09:25 | Progress Note ---
DATE: SUBJECTIVE: The patient remains on Levophed at 25 mcg. He is also on dobutamine at 4 mcg. He had an intra-aortic balloon pump placed yesterday. He is having increased confusion. He is waiting for possible transfer to [facility]. PHYSICAL EXAMINATION: VITAL SIGNS: Blood pressure is 124/50, saturation is 97% on 2 L. The pulse is 109. HEENT: Shows no facial swelling or erythema. LYMPHATIC: Shows no submandibular, cervical, or supraclavicular adenopathy. CARDIAC: Reveals regular rate and rhythm. Normal S1, S2. LUNGS: Auscultation of lungs shows decreased breath sounds at the bases. There is no wheezing. ABDOMEN: Soft, nontender. There is no rebound or guarding. EXTREMITIES: Shows no leg edema or calf tenderness. There is a femoral line in place on the left side as well as an intra-aortic balloon pump on the right side. LABORATORY DATA: BUN to creatinine ratio is 24 to 1.53. Potassium is 3.5 and sodium is 135. The chloride is 99, carbon dioxide is 81. Blood sugars are 285-330, and albumin is 3.2. RADIOGRAPHIC DATA: Chest x-ray shows slight improvement in bilateral infiltrates. IMPRESSION: 1. Cardiogenic shock requiring intra-aortic balloon pump and support with intravenous pressors. 2. Severe systolic cardiomyopathy. 3. Acute on chronic systolic congestive heart failure. 4. Acute kidney injury. 5. Diabetes. 6. Paroxysmal atrial fibrillation. PLAN: 1. Continue intra-aortic balloon pump. 2. Continue to monitor Levophed and dobutamine and adjust as tolerated. 3. Continue Lasix drip. 4. Monitor mental status. 5. Monitor renal function. Greater than 35 minutes in direct critical care time. MD SAPPHIRE Coy/GALEN /[id number]
[2020-01-19 09:54] LABS: ABG HCO3 16 mmol/L (22-26); ABG PCO2 24 mmHg (35-45); ABG PH 7.43 (7.35-7.45); ABG PO2 62 mmHg (80-105); ABG TCO2 17
[2020-01-19] MEDS: INSULIN REGULAR, HUMAN 100 UNIT/1 ML 3ML VIAL SQ SCH ×4 (10:03→21:23)
[2020-01-19] MEDS: HALOPERIDOL LACTATE 5 MG/ML VIAL IV PRN ×3 (10:20→21:30)
[2020-01-19] MEDS: DOBUtamine HCL 500MG/D5W 250ML 250 ML IV SCH (11:23)
--- NOTE | 2020-01-19 11:40 | NUR ---
Spoke with EUNICE Terrycell feed department supervisor. States he will handle transfer for pt.
[2020-01-19] MEDS ORDERED: ZIPRASIDONE 20 MG VIAL IM STA (12:06)
[2020-01-19] MEDS ORDERED: POTASSIUM CHLORIDE 20MEQ/100ML 200 ML IV ONE (13:15)
--- NOTE | 2020-01-19 13:41 | Progress Note ---
DATE: Renal Progress Note SUBJECTIVE: Events of the past 1 hour has been noted. The nurse reported the patient was somewhat agitated and somewhat confused this morning and so he put the patient on some oxygen face mask. The patient is arousable. Intake and output for the last 24 hours, he has had 925 in and 575 out. PHYSICAL EXAMINATION: VITAL SIGNS: Blood pressure 107/47, pulse about 114-116, respiration 20. GENERAL: The patient is quite lethargic. HEENT: No increased JVD. CARDIOVASCULAR: Regular rate and rhythm. LUNGS: Decreased breath sounds bilaterally. He has some high-pitched squeals bilaterally at the bases. ABDOMEN: Positive bowel sounds. EXTREMITIES: No edema, cyanosis or clubbing. LABORATORY RESULTS: Sodium 135, potassium 3.5, chloride 99, bicarbonate 21, BUN and creatinine 24 and 1.5 respectively. Calcium is 8.4, albumin 3.2. White count is 18,000, hemoglobin and hematocrit 10 and 29 respectively. Chest x-ray shows slight improvement. IMPRESSION/PLAN: 1. Acute kidney injury, superimposed on chronic kidney disease. 2. Cardiomyopathy. 3. Congestive heart failure. 4. Ischemic heart disease. 5. Coronary artery disease. 6. Tachycardia. The patient is currently on a Lasix drip at 5 mg an hour. We will go ahead and continue this. His renal function has improved slightly from yesterday. His creatinine has come down from 1.76 to 1.53. He has borderline hypokalemia. I will replace that with 40 mEq of potassium chloride IV. We are still waiting on a transfer to [facility] according to the nurse. We will continue the Lasix drip for now, also continue anatrophic agents as well. The patient's prognosis is guarded. The patient also remains with the intra-aortic balloon pump. Ather MD GAYATRI Aparicio/GALEN /[id number]
--- NOTE | 2020-01-19 14:45 | NUR ---
1100: transfer pt to first available bed in the medical center for advanced cardiac care and possible surgery per Kavitha Hannon DO. [facility] states a 30 patient wait for ICU beds; [facility] denies r/t capacity. Religious will be contacted next.
--- NOTE | 2020-01-19 16:18 | NUR ---
INFECTIOUS DISEASE CONSULT NOTE DR. ROMI MURRAY CC: chest pain Reason for Consult: Leukocytosis Consulting MD: Joss HPI: 59 year old male presented to the ED with chest pain starting on 01/11. The patient reports the pain was diffuse and relieved by nitro. He is s/p CABG in 2010 and multiple MIs, (LVEF <20%). His initial troponins were elevated in the ED and heparin gtt was initiated at that time. He is s/p balloon pump, now with KJ on inotropic support with dobutamine and vasopressor support with Levo. PAST MEDICAL HISTORY: Diabetes type 2 on insulin, multiple myocardial infarctions, coronary artery disease, TIAs, hypertension, and congestive heart failure. PAST SURGICAL HISTORY: Coronary artery bypass grafting 2010 and also ankle surgery. SOCIAL HISTORY: He is disabled, lives alone. Denies smoking or alcohol intake or illicit drug use. ROS: + fatigue + malaise ALL 14 POINT ROS NEG UNLESS OTHERWISE NOTED PHYSICAL EXAM VITAL SIGNS: per chart GENERAL: He is a chronically ill-appearing man, in no apparent distress. CARDIOVASCULAR: Tachycardic. Regular rhythm. LUNGS: Diminished breath sounds. ABDOMEN: Soft, obese, and nontender. EXTREMITIES: Cool to touch. Edema present. NEUROLOGIC: No focal deficits noted. RADIOLOGY: IMPRESSION: Cardiomegaly with interstitial pulmonary edema, progressed since most recent prior examination. Superimposed infection cannot be excluded. LABS: reviewed IMPRESSION: Pneumonia Leukocytosis Pleural Effusion s/p thoracentesis (exudative) Sepsis present on admission PLAN: Vancomycin and Cefepime Guarded prognosis Sanna Giraldo MSN, DIPLOMATIC OFFICER, AGACNP-BC Discussed with Romi Murray M.D.
[2020-01-19] MEDS ORDERED: CEFEPIME 1GM/NS 0.9% 50 ML 50 ML IV SCH (16:30)
[2020-01-19 17:13] LABS: COLOR,URINE YELLOW (YELLOW)
[2020-01-19 17:14] LABS: BILIRUBIN,URINE NEGATIVE (NEGATIVE); CLARITY,URINE HAZY (CLEAR); KETONES,URINE TRACE (NEGATIVE); LEUKOCYTE ESTERASE ,URINE TRACE (NEGATIVE); NITRITE,URINE NEGATIVE (NEGATIVE); PROTEIN,URINE DIPSTICK NEGATIVE (NEGATIVE); URINE UROBILINOGEN 0.2 mg/dL (0.2 - 1)
[2020-01-19 17:21] LABS: BACTERIA,URINE FEW /HPF; MUCUS,URINE FEW (RARE)
[2020-01-19] MEDS ORDERED: VANCOMYCIN 1GM/NS 250 ML 250 ML IV SCH (17:30)
[2020-01-19] MEDS ORDERED: HEPARIN 25,000 UNIT DRIP IV ONE (18:34)
[2020-01-19] MEDS ORDERED: HEPARIN 25,000 UNIT 900 UNIT in DEXTROSE 5% 250ML 250 ML IV SCH (18:35)
[2020-01-19] MEDS ORDERED: HEPARIN SOD (PORCINE) 5,000 UNIT/ML VIAL IV ONE (18:35)
[2020-01-19] MEDS ORDERED: POTASSIUM CHLORIDE 20MEQ/100ML 200 ML ONE (18:35)
[2020-01-19] MEDS ORDERED: NOREPINEPHRINE 8 MG/D5W 250 ML 250 ML IV PRN (18:45)
--- NOTE | 2020-01-19 19:05 | Diagnostic Imaging Report ---
EXAM: Abdomen Radiograph 1 View(s) INDICATION: Confirm NG tube placement COMPARISON: None FINDINGS/IMPRESSION: Nasogastric tube which terminates in the gastric body. Partially imaged cardiac pacer leads. There is nonobstructive bowel gas pattern. No evidence of pneumoperitoneum. Imaged lung bases demonstrate pulmonary infiltrates better seen on same day chest radiograph. Signed by: Octavia Gomes MD on 01/19/2020 7:01 PM
--- NOTE | 2020-01-19 19:08 | Progress Note ---
DATE: CONTINUATION: LABORATORY DATA: White blood cell count is 17, hemoglobin 9.8. Creatinine is 1.53, potassium 3.5, sodium 135. Chest x-ray shows slight improvement of pulmonary infiltrates. IMPRESSION: 1. Cardiogenic shock. 2. Lcgna-de-svrsfzk systolic congestive heart failure. 3. Non-ST elevation myocardial infarction. 4. Coronary artery disease, status post revascularization of the saphenous vein graft to the obtuse marginal vessel. 5. Diabetes mellitus. 6. Hyperlipidemia. 7. Pofmo-ue-ojckpmq kidney disease. 8. Obesity. 9. Confusion. RECOMMENDATIONS: The patient has an acute decompensation of his heart failure. Continue dobutamine for inotropic support. Continue Lasix drip for diuresis. Continue to wean vasopressors based on mean arterial pressures. Continue one-to-one counterpulsation on his intra-aortic balloon pump. The patient has been denied by [facility] for high-level care. He is currently on a waiting list for [facility] in the [facility]. [facility] transfer is still pending. Other option would be to transfer to . We will start heparin drip for his intra-aortic balloon pump. We will continue to follow along closely. Yao Hannon DO BM/MODL /[id number]
[2020-01-19] MEDS: ATORVASTATIN 40 MG TAB PO SCH (21:23)
[2020-01-19] MEDS: INSULIN GLARGINE 100 UNITS/ML VIAL SQ SCH (21:24)
[2020-01-19] MEDS: FUROSEMIDE INJ 100 MG in SODIUM CHLORIDE 0.9% 100 ML 90 ML IV SCH (22:00)
[2020-01-20] VITALS: BP_SYST 106; BP_SYST 97; BP_DIAS 50; BP_DIAS 54
--- NOTE | 2020-01-20 00:25 | NUR ---
Patient transferred via life flight to [facility] at this time. Dr. Robertson gave MD to MD report to Dr. Graff. Report given to EUNICE Arizmendi. Coding Advisor, RN and Cut Roll Machine Offbearer present for transport. Pt's sister, Blessing, notified of transfer. Pt belongings (cellphone, glasses, yardage control clerk, shoes, clothes) placed in belonging bag and will be picked up by Blessing in the morning.
--- NOTE | 2020-01-21 11:38 | Progress Note ---
DATE: Cardiology Progress Note SUBJECTIVE: The patient agitated, confused, cannot provide me review of systems. PHYSICAL EXAMINATION: VITAL SIGNS: Temperature is 98.3, heart rate is 116, blood pressure is 104/54, respiratory rate is 20, and ox saturation is 94% on 6 L Venturi mask. GENERAL: He is a chronically ill-appearing, confused. CARDIOVASCULAR: Tachycardic regular rhythm. LUNGS: Diminished breath sounds at bases. ABDOMEN: Soft, nontender, nondistended. EXTREMITIES: Edema present. DICTATION ENDS HERE DO JOAQUIN Espinoza/MODL /[id number]
--- NOTE | 2020-01-22 03:17 | Discharge Summary ---
ADMISSION DIAGNOSES: NSTEMI, CAD status post CABG, chronic systolic CHF, paroxysmal atrial fibrillation, hypotension, and type 2 diabetes. DISCHARGE DIAGNOSES: NSTEMI, CAD status post CABG, chronic systolic CHF, paroxysmal atrial fibrillation, hypotension, and type 2 diabetes plus acute on chronic systolic CHF plus cardiogenic shock secondary to CHF. HISTORY: Hypertension, type 2 diabetes, CAD, chronic systolic CHF with EF of 25%, multiple MIs, TIA, previous AFIB and VFib. SURGICAL HISTORY: The patient had a CABG in 2010 and an AICD/pacemaker placed. FAMILY HISTORY: Noncontributory. SOCIAL HISTORY: Noncontributory. HOSPITAL COURSE: A 59-year-old male presents with 3-4 days of chest pain and shortness of breath, which worsened with activity. On admission, chest x-ray showed left perihilar and retrocardiac opacities, enlarged cardiac silhouette and small left pleural effusion The patient's troponin was 0.379 on admission and continued to trend up. His BNP was 350. Cardiology was consulted and the patient was started on IV heparin, beta lopez and aspirin. The patient was also planned to have a heart catheterization. Bilateral carotid Doppler was negative for stenosis. On 01/14, the patient had a central line placed in. On 01/13, the patient had heart catheterization, which showed distal left main was occluded, bifurcation with ostial LAD and ostial circumflex also occlusion, left anterior descending coronary artery has stents present all the way down to the distal portion and is 100% occluded. Left circumflex is occluded proximally. Right coronary artery has moderate to severe diffuse disease inside a previously placed stent and is 100% occluded in the midportion saphenous vein graft likely anastomosed to the right coronary artery included the saphenous vein graft to the obtuse marginal has proximal 40% stenosis and distal 90% stenosis. The patient had a saphenous vein graft to obtuse marginal, dual anti-platelet therapy with aggressive medical therapy was recommended. The patient had a chest x-ray following the procedure, which showed worsening now pulmonary alveolar edema. Blood pressure dropped on 01/14 into the 70s and 60s, so he was started on Lasix, dobutamine, Levophed, and vasopressin. CT of the chest on January 15 was done after they were able to pull 750 mL out for thoracentesis after which he required IV drip for worsening cardiac function. Cardiology then recommended that the patient have a balloon pump placed and be transferred to the Medical Center. At the time of transfer, the patient had the right groin balloon pumps and he transferred to [facility]. Dictated by Sapna Haley, ALISON MD TUAN Ross/GALEN /[id number]
== END 2020-01-20 00:25 | disposition home or self-care (01) | DRG 853 ==
LOC: ER 19:08 → ERHOLD 21:15 → ICU 23:01 → IMCU 01-13 20:55 → ICU 01-15 06:30 → MED/SURG3 01-16 20:30 → ICU 01-17 20:56
PROVIDERS: ADMIT Internal Medicine; ATTEND Internal Medicine
PROC: 02HV33Z Insertion of Infusion Device into Superior Vena Cava, Percutaneous Approach (ICD-10-PCS; principal; 2020-01-15)
PROC: 5A02210 Assistance with Cardiac Output using Balloon Pump, Continuous (ICD-10-PCS; 2020-01-15)
PROC: 027034Z Dilation of Coronary Artery, One Artery with Drug-eluting Intraluminal Device, Percutaneous Approach (ICD-10-PCS; 2020-01-15)
PROC: B2181ZZ Fluoroscopy of Left Internal Mammary Bypass Graft using Low Osmolar Contrast (ICD-10-PCS; 2020-01-15)
PROC: B2151ZZ Fluoroscopy of Left Heart using Low Osmolar Contrast (ICD-10-PCS; 2020-01-15)
PROC: B2131ZZ Fluoroscopy of Multiple Coronary Artery Bypass Grafts using Low Osmolar Contrast (ICD-10-PCS; 2020-01-15)
PROC: B2111ZZ Fluoroscopy of Multiple Coronary Arteries using Low Osmolar Contrast (ICD-10-PCS; 2020-01-15)
PROC: 4A023N7 Measurement of Cardiac Sampling and Pressure, Left Heart, Percutaneous Approach (ICD-10-PCS; 2020-01-15)
PROC: 0W993ZZ Drainage of Right Pleural Cavity, Percutaneous Approach (ICD-10-PCS; 2020-01-17)
DX: A41.9 Sepsis, unspecified organism (principal); I21.4 Non-ST elevation (NSTEMI) myocardial infarction; I50.23 Acute on chronic systolic (congestive) heart failure; R57.0 Cardiogenic shock; T82.857A Stenosis of other cardiac prosthetic devices, implants and grafts, initial encounter; N17.9 Acute kidney failure, unspecified; J90 Pleural effusion, not elsewhere classified; I25.10 Atherosclerotic heart disease of native coronary artery without angina pectoris; Z95.1 Presence of aortocoronary bypass graft; I11.0 Hypertensive heart disease with heart failure; I48.0 Paroxysmal atrial fibrillation; Z79.01 Long term (current) use of anticoagulants; Z79.84 Long term (current) use of oral hypoglycemic drugs; Z95.0 Presence of cardiac pacemaker; I25.5 Ischemic cardiomyopathy; E11.40 Type 2 diabetes mellitus with diabetic neuropathy, unspecified; E78.5 Hyperlipidemia, unspecified; Z86.73 Personal history of transient ischemic attack (TIA), and cerebral infarction without residual deficits; R45.1 Restlessness and agitation; E11.65 Type 2 diabetes mellitus with hyperglycemia
CPT/HCPCS: 32555; 33970; 36415; 36600; 71045; 71250; 74018; 74470; 80048; 80053; 80061; 81001; 82550; 82553; 82805; 82945; 82947; 82948; 83036; 83615; 83735; 83880; 84100; 84157; 84443; 84478; 84484; 85025; 85379; 85610; 85730; 86850; 86900; 87040; 87070; 87086; 87205; 88112; 88305; 88342; 89051; 92937; 93005; 93306; 93455; 93880; 96372; 97139; 99152; 99153; 99251; 99284; C1725; C1766; C1769; C1874; J0153; J0692; J0696; J1250; J1630; J1644; J1815; J1817; J1940; J2001; J2060; J2250; J2270; J2405; J3010; J3370; J3480; J3486; J7030; J7050; J7060; Q9967